=== PATIENT | female | born 1995 | race Hispanic/Latino ===

== ENCOUNTER 2018-01-06 17:47 | Emergency (ER) | payer OTHER, SELFPAY ==
--- NOTE | 2018-01-06 18:33 | ER ---
Nurse's Notes [facility] Name: Arabella Crisostomo Age: 22 yrs Sex: Female : 1995 Arrival Date: 01/06/2018 Time: 17:50 Bed Waiting Private MD: None, None Diagnosis: ED Course: 01/06 17:50 Patient arrived in ED. mr 17:51 None, None is Private Physician. mr 18:05 Patient's name was called from ER [facility]. No response. Unable to locate patient. Will ss disposition as left without being seen by a provider. Administered Medications: No medications were administered Outcome: 18:32 Eloped from waiting room. ss 18:33 Patient left the ED. ss Signatures: Emily De Shelby, RN RN ss
== END 2018-01-06 18:33 | disposition left against medical advice (07) ==
LOC: ER 17:47
DX: Z53.21 Procedure and treatment not carried out due to patient leaving prior to being seen by health care provider (principal)

== ENCOUNTER 2022-08-23 09:54 | Emergency (ER) | payer OTHER ==
--- OUTSIDE RECORDS SUMMARY | 2022-08-23 10:02 | XMS REPORT | Continuity of Care Document ---
:1995 Author Organization [facility] t Address [address] [place] [address] [address] [place] [address] Care Team Providers Name Role Phone Provider, [facility] Attending Clinician Unavailable Gracie Quintana Attending Clinician GRACIE LEYVA Attending Clinician Unavailable Doctor Unassigned, [facility] Attending Clinician Unavailable Jesus Carbajal Attending Clinician JESUS KILGORE Attending Clinician Unavailable Visit, CarmeloRmchamol Nurse Attending Clinician Unavailable DEANGELO WEEKS Attending Clinician Unavailable Addison Carter MD Attending Clinician Ultrasound, Matthew Attending Clinician Unavailable Radha Ortiz MD Attending Clinician Denisse Carrasquillo MD Attending Clinician AkinMelissa Smith Attending Clinician [phone] ADDISON CARTER Admitting Clinician Unavailable DEANGELO WEEKS Admitting Clinician Unavailable Addison Carter MD Admitting Clinician Payers Payer Name Policy Type Policy Number Effective Date Expiration Date [facility] [id number] 2019 [facility] MEDICAID 00:00:00 MEDICAID PENDING PENDING 2019 00:00:00 [place] [id number] 2019 00:00:00 Problems Condition Condition Condition Status Onset Resolution Last Treating Co mments Source Name Details Category Date Date Treatment Clinician Date Encounter Encounter Disease Active Uni vers for for 10-02 ity of surveillan [place]an [place] ce of 00 Medical contracept contracept Br anch tashi, tashi, unspecifie unspecifie d d contracept contracept kaasndra kasandra Tubal Tubal Disease Active Univers ligation ligation 3-08 ity of status status 00:00: [place] [facility] 39 weeks 39 weeks Disease Active Unive rs gestation gestation 1-24 ity of of of 00:00: [place] 00 [facility] Branch Leakage of Leakage of Disease Active U nivers amniotic amniotic 1-24 ity of fluid fluid 00:00: [place] [facility] Branch 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 Address at 36wks Overweight Overweight Disease Active U nivers 5-27 ity of 00:00: [place] [facility] Multiparit Multiparit Disease Active U nivers y y 5-27 ity of 00:00: [place] [facility] BMI BMI Disease Active Univers 27.0-27.9, 27.0-27.9, 5-27 it y of adult adult 00:00: [place] [facility] Branch BMI BMI Disease Active 2016-07 Univers 29.0-29.9, 29.0-29.9, 2-13 it y of adult adult 00:00: [address] Branch Screening Screening Disease Active 2016-07 Uni vers examinatio examinatio 2-13 it y of n for STD n for STD 00:00: [place] (sexually (sexually 00 [facility] transmitte transmitte Br anch d disease) d disease) Need for Need for Disease Active 2016-07 Unive rs HPV HPV 2-13 ity of vaccinatio vaccinatio [place] 00 [facility] Branch Class 1 Class 1 Disease Active 2016-07 Univers obesity obesity 2-13 ity of with body with body 00:00: [place] mass index mass index 00 Me dical (BMI) of (BMI) of Branch 33.0 to 33.0 to 33.9 in 33.9 in adult, adult, unspecifie unspecifie d obesity d obesity type, type, unspecifie unspecifie d whether d whether serious serious comorbidit comorbidit y present y present BMI BMI Disease Active 2017-1 Univers 29.0-29.9, 29.0-29.9, 2-13 it y of adult adult 00:00: [place] 00 [facility] Previous Previous Disease Active 2016-07 Unive rs 1- ity of delivery delivery 00:00: [place] affecting affecting 00 Medi iraj , , Br anch antepartum antepartum BMI BMI Disease Active 2016-07 Univers 33.0-33.9, 33.0-33.9, 0-31 it y of adult adult 00:00: [place] 00 Medical [facility] Obesity in Obesity in Disease Active 2016-07 U nivers 0-04 ity of 00:00: [place] 00 Medical Branch Supervisio Supervisio Disease Active U nivers n of high n of high 3-20 ity of risk risk 00:00: [place] , , 00 Me dical antepartum antepartum Br anch Maternal Maternal Disease Active Overview: Un jaz varicella, varicella, 3-03 Formattin ity of non-immune non-immune 00:00: g of this 00 note Medical might be Branch different from the original. Negative, address in PP Allergies, Adverse Reactions, Alerts Allergy Allergy Status Severity Reaction(s) Onset Inactive Treating Comm ents Source Name Type Date Date Clinician Tramadol Propensi Active Nausea Univer s ty to and/or 1-21 ity of adverse Vomiting 00:00: [place] reaction 00 Medical s to Branch drug TRAMADOL DRUG Active Med N/V Univers INGREDI 1-21 ity of 00:00: [place] 00 Medical Branch Codeine Propensi Active Rash Univers ty to 7-11 ity of adverse 00:00: [place] reaction 00 Medical s Branch CODEINE DRUG Active N/V Univers INGREDI 7-11 ity of 00:00: [place] 00 Medical Branch NO KNOWN Drug Active Univers ALLERGIE Class ity of S [facility] Social History Social Habit Start Date Stop Date Quantity Comments Source ASSERTION 2019-12-05 University of 00:00:00 [facility] Exposure to Not sure University of SARS-CoV-2 [place] [facility] (event) Branch Tobacco use and 2021-02-06 2021-02-06 Never used Universit y of exposure 00:00:00 00:00:00 [facility] Alcohol intake 2021-02-06 2021-02-06 Current University of 00:00:00 00:00:00 non-drinker of [facility] alcohol Branch (finding) Tobacco Comment 2016-09-26 2016-09-26 stopped smoking Univ ersity of 00:00:00 00:00:00 Saturday 09/23 [place] [facility] History of 2016-09-23 Smoker University of tobacco use 00:00:00 [facility] Sex Assigned At [birth year] Universit y of 00:00:00 00:00:00 [facility] Smoking Status Start Date Stop Date Source Former smoker 2021-02-06 00:00:00 2021-02-06 00:00:00 Universi ty of [facility] Medications Ordered Filled Start Stop Current Ordering Indication Dosage Frequency Signature Comments Components Source Medication Medication Date Date Medication? Clinician (SIG) Name Name maria cazin 2020- No [id number] 5mL Take 5 mL Univers e-dextromet 02-06 by mouth ity of horphan 00:00: 04:59 every 4 [place] 6.25-15 00 :00 (four) Medical mg/5 mL hours as Branch syrup needed for Cough for up to 14 days. Yes [id number] 1{tbl} Take 1 Univers vitamin 1-25 tablet by ity of w/FA tablet 00:00: mouth [place] 00 daily. Medical Branch docusate Yes [id number] 240mg Take 1 U nivers calcium 240 1-25 capsule by it y of mg capsule 00:00: mouth once [place] 00 daily as Medical needed for Branch Constipati on. ferrous Yes [id number] 325mg Take 1 Un jaz sulfate 325 1-25 tablet by ity of mg (65 mg 00:00: mouth 2 [place] iron) 00 (two) Medical tablet times Branch daily. ibuprofen Yes [id number] 600mg Take 1 Univers 600 mg 1-25 tablet by ity of tablet 00:00: mouth [place] 00 every 6 Medical (six) Branch hours as needed (Pain). Take with food or milk. HYDROcodone Yes [id number] 1{tbl} Take 1 Un jaz -acetaminop 1-25 tablet by ity of hen 5-325 00:00: mouth [place] mg tablet 00 every 6 Medical (six) Branch hours as needed for Pain (scale 7-10) (Pain scale above 4). Do not exceed 3 grams of acetaminop hen in 24 hours. Indication s: acute pain simethicone Yes [id number] 80mg Take 1 Univers (GAS 1-25 tablet by ity of RELIEF, 00:00: mouth [place] SIMETHICONE 00 after Medical ,) 80 mg meals and Branch chewable at bedtime tablet as needed for Gas. Yes [id number] 1{tbl} Take 1 Univers vitamin 1-25 tablet by ity of w/FA tablet 00:00: mouth [place] 00 daily. Medical Branch docusate Yes [id number] 240mg Take 1 U nivers calcium 240 1-25 capsule by it y of mg capsule 00:00: mouth [place] 00 daily as Medical needed for Branch Constipati on. ferrous Yes [id number] 325mg Take 1 Un jaz sulfate 325 1-25 tablet by ity of mg (65 mg 00:00: mouth 2 [place] iron) 00 (two) Medical tablet times Branch daily. ibuprofen Yes [id number] 600mg Take 1 Univers 600 mg 1-25 tablet by ity of tablet 00:00: mouth [place] 00 every 6 Medical (six) Branch hours as needed (Pain). Take with food or milk. HYDROcodone Yes [id number] 1{tbl} Take 1 Un jaz -acetaminop 1-25 tablet by ity of hen 5-325 00:00: mouth [place] mg tablet 00 every 6 Medical (six) Branch hours as needed for Pain (scale 7-10) (Pain scale above 4). Do not exceed 3 grams of acetaminop hen in 24 hours. Indication s: acute pain simethicone Yes [id number] 80mg Take 1 Univers (GAS 1-25 tablet by ity of RELIEF, 00:00: mouth [place] SIMETHICONE 00 after Medical ,) 80 mg meals and Branch chewable at bedtime tablet as needed for Gas. 2020- No [id number] 1{tbl} Take 1 Univers vitamin 1-25 03-08 tablet by ity of w/FA tablet 00:00: 00:00 [place] 00 :00 daily. Medical Branch docusate No [id number] 240mg Take 1 Univers calcium 240 08-21 capsule by i ty of mg capsule 00:00: 00:00 mouth once [place] 00 :00 daily as Medical needed for Branch Constipati on. ferrous 2020- No [id number] 325mg Take 1 U nivers sulfate 325 08-21 tablet by it y of mg (65 mg 00:00: 00:00 mouth 2 [place] iron) 00 :00 (two) Medical tablet times Branch daily. ibuprofen 2020- No [id number] 600mg Take 1 Univers 600 mg 08-21 tablet by ity of tablet 00:00: 00:00 mouth [place] 00 :00 every 6 Medical (six) Branch hours as needed (Pain). Take with food or milk. HYDROcodone 2020- No [id number] 1{tbl} Take 1 U nivers -acetaminop 08-21 tablet by it y of hen 5-325 00:00: 00:00 mouth [place] mg tablet 00 :00 every 6 Medical (six) Branch hours as needed for Pain (scale 7-10) (Pain scale above 4). Do not exceed 3 grams of acetaminop hen in 24 hours. Indication s: acute pain simethicone 2020- No [id number] 80mg Take 1 Univers (GAS 08-21 tablet by ity of RELIEF, 00:00: 00:00 mouth [place] SIMETHICONE 00 :00 after Medical ,) 80 mg meals and Branch chewable at bedtime tablet as needed for Gas. SELECT-OB + Yes [id number] TAKE 1 Univers DHA 29 mg 1-19 PACKET ity of iron-1 mg 00:00: DAILY BY [place] -250 mg 00 MOUTH Medical combo pack Branch SELECT-OB + Yes [id number] TAKE 1 Univers DHA 29 mg 1-19 PACKET ity of iron-1 mg 00:00: DAILY [place] -250 mg 00 MOUTH Medical combo pack Branch valACYclovi Yes [id number] 500mg Take 1 Univers r (VALTREX) 1-07 tablet by ity of 500 mg 00:00: mouth [place] tablet 00 daily. Medical Branch valACYclovi Yes [id number] 500mg Take 1 Univers r (VALTREX) 1-07 tablet by ity of 500 mg 00:00: mouth [place] tablet 00 daily. Medical Branch valACYclovi Yes [id number] 500mg Take 1 Univers r (VALTREX) 1-07 tablet by ity of 500 mg 00:00: mouth [place] tablet 00 daily. Medical Branch valACYclovi Yes [id number] 500mg Take 1 Univers r (VALTREX) 1-07 tablet by ity of 500 mg 00:00: mouth [place] tablet 00 daily. Medical Branch valACYclovi Yes [id number] 500mg Take 1 Univers r (VALTREX) 1-07 tablet by ity of 500 mg 00:00: mouth [place] tablet 00 daily. Medical Branch valACYclovi Yes [id number] 500mg Take 1 Univers r (VALTREX) 1-07 tablet by ity of 500 mg 00:00: mouth [place] tablet 00 daily. Medical Branch Yes [id number] 1{packe Take 1 Univers vit 6-01 t} Packet by ity of 33-iron-fol 00:00: mouth [place] ic-dha 00 daily. Medical (SELECT-OB Branch + DHA) 29 mg iron-1 mg -250 mg combo pack Yes [id number] 1{packe Take 1 Univers vit 6-01 t} Packet by ity of 33-iron-fol 00:00: mouth [place] ic-dha 00 daily. Medical (SELECT-OB Branch + DHA) 29 mg iron-1 mg -250 mg combo pack Yes [id number] 1{packe Take 1 Univers vit 6-01 t} Packet by ity of 33-iron-fol 00:00: mouth [place] ic-dha 00 daily. Medical (SELECT-OB Branch + DHA) 29 mg iron-1 mg -250 mg combo pack 2019- Yes [id number] 1{packe Take 1 Univers vit 6-01 t} Packet by ity of 33-iron-fol 00:00: mouth [place] ic-dha 00 daily. Medical (SELECT-OB Branch + DHA) 29 mg iron-1 mg -250 mg combo pack Yes [id number] 1{packe Take 1 Univers vit 6-01 t} Packet by ity of 33-iron-fol 00:00: mouth [place] ic-dha 00 daily. Medical (SELECT-OB Branch + DHA) 29 mg iron-1 mg -250 mg combo pack 2020-0 Yes [id number] 1{packe Take 1 Univers vit 6-01 t} Packet by ity of 33-iron-fol 00:00: mouth [place] ic-dha 00 daily. Medical (SELECT-OB Branch + DHA) 29 mg iron-1 mg -250 mg combo pack 2020-0 Yes [id number] 1{packe Take 1 Univers vit 6-01 t} Packet by ity of 33-iron-fol 00:00: mouth [place] ic-dha 00 daily. Medical (SELECT-OB Branch + DHA) 29 mg iron-1 mg -250 mg combo pack 2020-0 Yes [id number] 1{packe Take 1 Univers vit 6-01 t} Packet by ity of 33-iron-fol 00:00: mouth [place] ic-dha 00 daily. Medical (SELECT-OB Branch + DHA) 29 mg iron-1 mg -250 mg combo pack 2020-0 Yes [id number] 1{packe Take 1 Univers vit 6-01 t} Packet by ity of 33-iron-fol 00:00: mouth [place] ic-dha 00 daily. Medical (SELECT-OB Branch + DHA) 29 mg iron-1 mg -250 mg combo pack 2020-0 Yes [id number] 1{packe Take 1 Univers vit 6-01 t} Packet by ity of 33-iron-fol 00:00: mouth [place] ic-dha 00 daily. Medical (SELECT-OB Branch + DHA) 29 mg iron-1 mg -250 mg combo pack 2020-0 Yes [id number] 1{packe Take 1 Univers vit 6-01 t} Packet by ity of 33-iron-fol 00:00: mouth [place] ic-dha 00 daily. Medical (SELECT-OB Branch + DHA) 29 mg iron-1 mg -250 mg combo pack 2020-0 Yes [id number] 1{packe Take 1 Univers vit 6-01 t} Packet by ity of 33-iron-fol 00:00: mouth [place] ic-dha 00 daily. Medical (SELECT-OB Branch + DHA) 29 mg iron-1 mg -250 mg combo pack 2020-0 Yes [id number] 1{packe Take 1 Univers vit 6-01 t} Packet by ity of 33-iron-fol 00:00: mouth [place] ic-dha 00 daily. Medical (SELECT-OB Branch + DHA) 29 mg iron-1 mg -250 mg combo pack 2020-0 Yes [id number] 1{packe Take 1 Univers vit 6-01 t} Packet by ity of 33-iron-fol 00:00: mouth [place] ic-dha 00 daily. Medical (SELECT-OB Branch + DHA) 29 mg iron-1 mg -250 mg combo pack 2020-0 Yes [id number] 1{packe Take 1 Univers vit 6-01 t} Packet by ity of 33-iron-fol 00:00: mouth [place] ic-dha 00 daily. Medical (SELECT-OB Branch + DHA) 29 mg iron-1 mg -250 mg combo pack 2020-0 Yes [id number] 1{packe Take 1 Univers vit 6-01 t} Packet by ity of 33-iron-fol 00:00: mouth [place] ic-dha 00 daily. Medical (SELECT-OB Branch + DHA) 29 mg iron-1 mg -250 mg combo pack 2020-0 Yes [id number] 1{packe Take 1 Univers vit 6-01 t} Packet by ity of 33-iron-fol 00:00: mouth [place] ic-dha 00 daily. Medical (SELECT-OB Branch + DHA) 29 mg iron-1 mg -250 mg combo pack 2020-0 Yes [id number] 1{packe Take 1 Univers vit 6-01 t} Packet by ity of 33-iron-fol 00:00: mouth [place] ic-dha 00 daily. Medical (SELECT-OB Branch + DHA) 29 mg iron-1 mg -250 mg combo pack 2020-0 Yes [id number] 1{packe Take 1 Univers vit 6-01 t} Packet by ity of 33-iron-fol 00:00: mouth [place] ic-dha 00 daily. Medical (SELECT-OB Branch + DHA) 29 mg iron-1 mg -250 mg combo pack 2020-0 Yes [id number] 1{packe Take 1 Univers vit 6-01 t} Packet by ity of 33-iron-fol 00:00: mouth [place] ic-dha 00 daily. Medical (SELECT-OB Branch + DHA) 29 mg iron-1 mg -250 mg combo pack 2020-0 Yes [id number] 1{packe Take 1 Univers vit 6-01 t} Packet by ity of 33-iron-fol 00:00: mouth [place] ic-dha 00 daily. Medical (SELECT-OB Branch + DHA) 29 mg iron-1 mg -250 mg combo pack 2020-0 Yes [id number] 1{packe Take 1 Univers vit 6-01 t} Packet by ity of 33-iron-fol 00:00: mouth [place] ic-dha 00 daily. Medical (SELECT-OB Branch + DHA) 29 mg iron-1 mg -250 mg combo pack 2020-0 Yes [id number] 1{packe Take 1 Univers vit 6-01 t} Packet by ity of 33-iron-fol 00:00: mouth [place] ic-dha 00 daily. Medical (SELECT-OB Branch + DHA) 29 mg iron-1 mg -250 mg combo pack Yes [id number] 1{packe Take 1 Univers vit 6-01 t} Packet by ity of 33-iron-fol 00:00: mouth [place] ic-dha 00 daily. Medical (SELECT-OB Branch + DHA) 29 mg iron-1 mg -250 mg combo pack 2019-0 Yes [id number] 1{packe Take 1 Univers vit 6-01 t} Packet by ity of 33-iron-fol 00:00: mouth [place] ic-dha 00 daily. Medical (SELECT-OB Branch + DHA) 29 mg iron-1 mg -250 mg combo pack 2019-0 Yes [id number] 1{packe Take 1 Univers vit 6-01 t} Packet by ity of 33-iron-fol 00:00: mouth [place] ic-dha 00 daily. Medical (SELECT-OB Branch + DHA) 29 mg iron-1 mg -250 mg combo pack 2020-0 Yes [id number] 1{packe Take 1 Univers vit 6-01 t} Packet by ity of 33-iron-fol 00:00: mouth [place] ic-dha 00 daily. Medical (SELECT-OB Branch + DHA) 29 mg iron-1 mg -250 mg combo pack 2020-0 Yes [id number] 1{packe Take 1 Univers vit 6-01 t} Packet by ity of 33-iron-fol 00:00: mouth [place] ic-dha 00 daily. Medical (SELECT-OB Branch + DHA) 29 mg iron-1 mg -250 mg combo pack 2020- No [id number] 1{packe Take 1 Univers vit -08-15 t} Packet by ity of 33-iron-fol 00:00: 00:00 [place] ic-dha 00 :00 daily. Medical (SELECT-OB Branch + DHA) 29 mg iron-1 mg -250 mg combo pack ibuprofen 2016-07 Yes 600mg Take 1 Unive rs 600 mg 07-28 tablet by ity of tablet 00:00: mouth [place] 00 every 6 Medical (six) Branch hours. ibuprofen 2016-07- No 600mg Take 1 Univ ers 600 mg 07-28 tablet by ity of tablet 00:00: 00:00 mouth [place] 00 :00 every 6 Medical (six) Branch hours. ibuprofen 2016-07- No 600mg Take 1 Univ ers 600 mg 07-28 tablet by ity of tablet 00:00: 00:00 mouth [place] 00 :00 every 6 Medical (six) Branch hours. ibuprofen 2016-07 No 600mg Take 1 Univ ers 600 mg 07-28 tablet by ity of tablet 00:00: 00:00 mouth [place] 00 :00 every 6 Medical (six) Branch hours. Yes [id number] 1{tbl} Take 1 U nivers multivitami 3-02 tablet by ity of n ( 00:00: mouth [place] VITAMIN) 00 daily. Medical tablet Branch 2019- No [id number] 1{tbl} Take 1 Univers multivitami 3-02 05-27 tablet by it y of n ( 00:00: 00:00 [place] VITAMIN) 00 :00 daily. Medical tablet Branch 2019- No [id number] 1{tbl} Take 1 Univers multivitami 3-02 05-27 tablet by it y of n ( 00:00: 00:00 [place] VITAMIN) 00 :00 daily. Medical tablet Branch 2019- No [id number] 1{tbl} Take 1 Univers multivitami 3-02 05-27 tablet by it y of n ( 00:00: 00:00 [place] VITAMIN) 00 :00 daily. Medical tablet Branch No known No [facility] Immun[facility] Ordered Filled Immunization Date Status Comments [facility] e Immunization Name Name Varicella 2020-08-21 Completed University of (varivax)(chicken 00:00:00 [place] M edical pox) Branch HPV9 2020-08-21 Completed University of 00:00:00 [facility] Varicella 2020-08-21 Completed University of (varivax)(chicken 00:00:00 [place] M edical pox) Branch HPV9 2020-08-21 Completed University of 00:00:00 [facility] Varicella 2020-08-21 Completed University of (varivax)(chicken 00:00:00 [place] M edical pox) Branch HPV9 2020-08-21 Completed University of 00:00:00 [facility] Varicella 2020-08-21 Completed University of (varivax)(chicken 00:00:00 [place] M edical pox) Branch HPV9 2020-08-21 Completed University of 00:00:00 [facility] TDAP 2020-06-05 Completed University of 00:00:00 [facility] TDAP 2020-06-05 Completed University of 00:00:00 [facility] TDAP 2020-06-05 Completed University of 00:00:00 [facility] TDAP 2020-06-05 Completed University of 00:00:00 [facility] TDAP 2020-06-05 Completed University of 00:00:00 [facility] TDAP 2020-06-05 Completed University of 00:00:00 [facility] TDAP 2020-06-05 Completed University of 00:00:00 [facility] TDAP 2020-06-05 Completed University of 00:00:00 [facility] TDAP 2020-06-05 Completed University of 00:00:00 [facility] TDAP 2020-06-05 Completed University of 00:00:00 [facility] TDAP 2020-06-05 Completed University of 00:00:00 [facility] TDAP 2020-06-05 Completed University of 00:00:00 [facility] TDAP 2020-06-05 Completed University of 00:00:00 [facility] TDAP 2020-06-05 Completed University of 00:00:00 [facility] TDAP 2020-06-05 Completed University of 00:00:00 [facility] TDAP 2020-06-05 Completed University of 00:00:00 [facility] TDAP 2020-06-05 Completed University of 00:00:00 [facility] TDAP 2020-06-05 Completed University of 00:00:00 [place] [facility] [place] Influenza Virus 2020-05-22 Completed Universit y of Vaccine Quad .5 mL 00:00:00 [place] [facility] IM 6+ MO Branch Influenza Virus 2020-05-22 Completed Universit y of Vaccine Quad .5 mL 00:00:00 [place] [facility] IM 6+ MO Branch Influenza Virus 2020-05-22 Completed Universit y of Vaccine Quad .5 mL 00:00:00 [place] [facility] IM 6+ MO Branch Influenza Virus 2020-05-22 Completed Universit y of Vaccine Quad .5 mL 00:00:00 [place] [facility] IM 6+ MO Branch Influenza Virus 2020-05-22 Completed Universit y of Vaccine Quad .5 mL 00:00:00 [place] [facility] IM 6+ MO Branch Influenza Virus 2020-05-22 Completed Universit y of Vaccine Quad .5 mL 00:00:00 [place] [facility] IM 6+ MO Branch Influenza Virus 2020-05-22 Completed Universit y of Vaccine Quad .5 mL 00:00:00 [place] [facility] IM 6+ MO Branch Influenza Virus 2020-05-22 Completed Universit y of Vaccine Quad .5 mL 00:00:00 [place] [facility] IM 6+ MO Branch Influenza Virus 2020-05-22 Completed Universit y of Vaccine Quad .5 mL 00:00:00 [place] [facility] IM 6+ MO Branch Influenza Virus 2020-05-22 Completed Universit y of Vaccine Quad .5 mL 00:00:00 [place] [facility] IM 6+ MO Branch Influenza Virus 2020-05-22 Completed Universit y of Vaccine Quad .5 mL 00:00:00 [place] [facility] IM 6+ MO Branch Influenza Virus 2020-05-22 Completed Universit y of Vaccine Quad .5 mL 00:00:00 [place] [facility] IM 6+ MO Branch Influenza Virus 2020-05-22 Completed Universit y of Vaccine Quad .5 mL 00:00:00 [place] [facility] IM 6+ MO Branch Influenza Virus 2020-05-22 Completed Universit y of Vaccine Quad .5 mL 00:00:00 [place] [facility] IM 6+ MO Branch Influenza Virus 2020-05-22 Completed Universit y of Vaccine Quad .5 mL 00:00:00 [place] [facility] IM 6+ MO Branch Influenza Virus 2020-05-22 Completed Universit y of Vaccine Quad .5 mL 00:00:00 [place] [facility] IM 6+ MO Branch Influenza Virus 2020-05-22 Completed Universit y of Vaccine Quad .5 mL 00:00:00 [place] [facility] IM 6+ MO Branch Influenza Virus 2020-05-22 Completed Universit y of Vaccine Quad .5 mL 00:00:00 [place] [facility] IM 6+ MO Branch Influenza Virus 2020-05-22 Completed Universit y of Vaccine Quad .5 mL 00:00:00 [place] [facility] IM 6+ MO Branch Influenza Virus 2020-05-22 Completed Universit y of Vaccine Quad .5 mL 00:00:00 [facility] IM 6+ MO Branch HPV9 2017-07-08 Completed University of 00:00:00 [facility] Branch HPV9 2017-07-08 Completed University of 00:00:00 [facility] Branch HPV9 2017-07-08 Completed University of 00:00:00 [facility] Branch HPV9 2017-07-08 Completed University of 00:00:00 [facility] Branch HPV9 2017-07-08 Completed University of 00:00:00 [facility] HPV9 2017-07-08 Completed University of 00:00:00 [facility] HPV9 2017-07-08 Completed University of 00:00:00 [facility] Branch HPV9 2017-07-08 Completed University of 00:00:00 [facility] Branch HPV9 2017-07-08 Completed University of 00:00:00 [facility] Branch HPV9 2017-07-08 Completed University of 00:00:00 [facility] Branch HPV9 2017-07-08 Completed University of 00:00:00 [facility] Branch HPV9 2017-07-08 Completed University of 00:00:00 [facility] Branch HPV9 2017-07-08 Completed University of 00:00:00 [facility] Branch HPV9 2017-07-08 Completed University of 00:00:00 [facility] Branch HPV9 2017-07-08 Completed University of 00:00:00 [facility] Branch HPV9 2017-07-08 Completed University of 00:00:00 [facility] Branch HPV9 2017-07-08 Completed University of 00:00:00 [facility] Branch HPV9 2017-07-08 Completed University of 00:00:00 [facility] Branch HPV9 2017-07-08 Completed University of 00:00:00 [facility] Branch HPV9 2017-07-08 Completed University of 00:00:00 [facility] HPV9 2017-07-08 Completed University of 00:00:00 [facility] Branch HPV9 2017-07-08 Completed [facility] 00:00:00 [facility] HPV9 2017-07-08 Completed [facility] 00:00:00 [facility] HPV9 2017-07-08 Completed [facility] 00:00:00 [facility] HPV9 2017-07-08 Completed [facility] 00[facility]00:00 [facility] HPV9 2017-07-08 Completed [facility] 00:00:00 [facility] HPV9 2017-07-08 Completed [facility] 00:00:00 [facility] HPV9 2017-07-08 Completed [facility] 00:00:00 [facility] HPV9 2017-07-08 Completed [facility] 00:00:00 [facility] HPV9 2017-07-08 Completed [facility] 00:00:00 [facility] HPV9 2017-07-08 Completed [facility] 00:00:00 [facility] HPV9 2017-07-08 Completed [facility] 00:00:00 [facility] HPV9 2017-07-08 Completed [facility] 00:00:00 [facility] HPV9 2017-07-08 Completed [facility] 00:00:00 [facility] HPV9 2017-07-08 Completed [facility] 00:00:00 [facility] HPV9 2017-07-08 Completed [facility] 00:00:00 [facility] HPV9 2017-07-08 Completed [facility] 00:00:00 [facility] HPV9 2017-07-08 Completed [facility] 00:00:00 [facility] HPV9 2017-07-08 Completed [facility] 00:00:00 [facility] HPV9 2017-07-08 Completed [facility] 00:00:00 [facility] HPV9 2017-05-28 Completed [facility] 00:00:00 [facility] HPV9 2017-05-28 Completed [facility] 00:00:00 [facility] HPV9 2017-05-28 Completed [facility] 00:00:00 [facility] HPV9 2017-05-28 Completed [facility] 00:00:00 [facility] HPV9 2017-05-28 Completed [facility] 00:00:00 [facility] HPV9 2017-05-28 Completed [facility] 00:00:00 [facility] HPV9 2017-05-28 Completed [facility] 00:00:00 [facility] HPV9 2017-05-28 Completed [facility] 00:00:00 [facility] HPV9 2017-05-28 Completed [facility] 00:00:00 [facility] HPV9 2017-05-28 Completed [facility] 00:00:00 [facility] HPV9 2017-05-28 Completed [facility] 00:00:00 [facility] HPV9 2017-05-28 Completed [facility] 00:00:00 [facility] HPV9 2017-05-28 Completed [facility] 00:00:00 [facility] HPV9 2017-05-28 Completed [facility] 00:00:00 [facility] HPV9 2017-05-28 Completed [facility] 00:00:00 [facility] HPV9 2017-05-28 Completed [facility] 00:00:00 [facility] HPV9 2017-05-28 Completed [facility] 00:00:00 [facility] HPV9 2017-05-28 Completed [facility] 00:00:00 [facility] HPV9 2017-05-28 Completed [facility] 00:00:00 [facility] HPV9 2017-05-28 Completed [facility] 00:00:00 [facility] HPV9 2017-05-28 Completed [facility] 00:00:00 [facility] HPV9 2017-05-28 Completed [facility] 00:00:00 [facility] HPV9 2017-05-28 Completed [facility] 00:00:00 [facility] HPV9 2017-05-28 Completed [facility] 00:00:00 [facility] HPV9 2017-05-28 Completed [facility] 00:00:00 [facility] HPV9 2017-05-28 Completed [facility] 00:00:00 [facility] HPV9 2017-05-28 Completed [facility] 00:00:00 [facility] HPV9 2017-05-28 Completed [facility] 00:00:00 [facility] HPV9 2017-05-28 Completed [facility] 00:00:00 [facility] HPV9 2017-05-28 Completed [facility] 00:00:00 [facility] HPV9 2017-05-28 Completed [facility] 00:00:00 [facility] HPV9 2017-05-28 Completed [facility] 00:00:00 [facility] HPV9 2017-05-28 Completed [facility] 00:00:00 [facility] HPV9 2017-05-28 Completed [facility] 00:00:00 [facility] HPV9 2017-05-28 Completed [facility] 00:00:00 [facility] HPV9 2017-05-28 Completed [facility] 00:00:00 [facility] HPV9 2017-05-28 Completed [facility] 00:00:00 [facility] HPV9 2017-05-28 Completed [facility] 00:00:00 [facility] HPV9 2017-05-28 Completed [facility] 00:00:00 [facility] HPV9 2017-05-28 Completed [facility] 00:00:00 [facility] Tdap 2017-03-03 Completed [facility] 00:00:00 [facility] Tdap 2017-03-03 Completed [facility] 00:00:00 [facility] TDAP 2017-03-03 Completed [facility] 00:00:00 [facility] TDAP 2017-03-03 Completed [facility] 00:00:00 [facility] TDAP 2017-03-03 Completed [facility] 00:00:00 [facility] TDAP 2017-03-03 Completed [facility] 00:00:00 [facility] TDAP 2017-03-03 Completed [facility] 00:00:00 [facility] TDAP 2017-03-03 Completed [facility] 00:00:00 [facility] TDAP 2017-03-03 Completed [facility] 00:00:00 [facility] TDAP 2017-03-03 Completed [facility] 00:00:00 [facility] TDAP 2017-03-03 Completed [facility] 00:00:00 [facility] TDAP 2017-03-03 Completed [facility] 00:00:00 [facility] TDAP 2017-03-03 Completed [facility] 00:00:00 [facility] TDAP 2017-03-03 Completed [facility] 00:00:00 [facility] TDAP 2017-03-03 Completed [facility] 00:00:00 [facility] TDAP 2017-03-03 Completed [facility] 00:00:00 [facility] TDAP 2017-03-03 Completed [facility] 00:00:00 [facility] TDAP 2017-03-03 Completed [facility] 00:00:00 [facility] TDAP 2017-03-03 Completed [facility] 00:00:00 [facility] Tdap 2017-03-03 Completed [facility] 00:00:00 [facility] TDAP 2017-03-03 Completed [facility] 00:00:00 [facility] TDAP 2017-03-03 Completed [facility] 00:00:00 [facility] TDAP 2017-03-03 Completed [facility] 00:00:00 [facility] TDAP 2017-03-03 Completed [facility] 00:00:00 [facility] TDAP 2017-03-03 Completed [facility] 00:00:00 [facility] TDAP 2017-03-03 Completed [facility] 00:00:00 [facility] TDAP 2017-03-03 Completed [facility] 00[facility]00:00 [facility] TDAP 2017-03-03 Completed [facility] 00[facility]00:00 [facility] TDAP 2017-03-03 Completed [facility] 00[facility]00:00 [facility] TDAP 2017-03-03 Completed [facility] 00:00:00 [facility] TDAP 2017-03-03 Completed [facility] 00:00:00 [facility] Tdap 2017-03-03 Completed [facility] 00:00:00 [facility] TDAP 2017-03-03 Completed [facility] 00[facility]00:00 [facility] TDAP 2017-03-03 Completed [facility] 00:00:00 [facility] TDAP 2017-03-03 Completed [facility] 00:00:00 [facility] TDAP 2017-03-03 Completed [facility] 00:00:00 [facility] TDAP 2017-03-03 Completed [facility] 00:00:00 [facility] Tdap 2017-03-03 Completed [facility] 00:00:00 [facility] Tdap 2017-03-03 Completed [facility] 00:00:00 [facility] Tdap 2017-03-03 Completed [facility] 00:00:00 [facility] Influenza Virus 2016-09-26 Completed [facility]+ 00:00:00 [facility] Influenza Virus 2016-09-26 Completed [facility]+ 00:00:00 [facility] Influenza Virus 2016-09-26 Completed [facility]+ 00:00:00 [facility] Influenza Virus 2016-09-26 Completed [facility] 3+ 00:00:00 [facility] Influenza Virus 2016-09-26 Completed [facility] 3+ 00:00:00 [facility] Influenza Virus 2016-09-26 Completed [facility] 3+ 00:00:00 [facility] Influenza Virus 2016-09-26 Completed [facility]+ 00:00:00 [facility] Influenza Virus 2016-09-26 Completed [facility]+ 00:00:00 [facility] Influenza Virus 2016-09-26 Completed [facility]+ 00:00:00 [facility] Influenza Virus 2016-09-26 Completed [facility]+ 00:00:00 [facility] Influenza Virus 2016-09-26 Completed [facility]+ 00:00:00 [facility] Influenza Virus 2016-09-26 Completed [facility] 3+ 00:00:00 [facility] Influenza Virus 2016-09-26 Completed [facility] 3+ 00:00:00 [facility] Influenza Virus 2016-09-26 Completed [facility]+ 00:00:00 [facility] Influenza Virus 2016-09-26 Completed [facility]+ 00:00:00 [facility] Influenza Virus 2016-09-26 Completed [facility]+ 00:00:00 [facility] Influenza Virus 2016-09-26 Completed [facility]+ 00:00:00 [facility] Influenza Virus 2016-09-26 Completed [facility]+ 00:00:00 [facility] Influenza Virus 2016-09-26 Completed [facility]+ 00:00:00 [facility] Influenza Virus 2016-09-26 Completed [facility]+ 00:00:00 [facility] Influenza Virus 2016-09-26 Completed [facility]+ 00:00:00 [facility] Influenza Virus 2016-09-26 Completed [facility]+ 00:00:00 [facility] Influenza Virus 2016-09-26 Completed [facility]+ 00:00:00 [facility] Influenza Virus 2016-09-26 Completed [facility]+ 00:00:00 [facility] Influenza Virus 2016-09-26 Completed [facility]+ 00:00:00 [facility] Influenza Virus 2016-09-26 Completed [facility]+ 00:00:00 [facility] Influenza Virus 2016-09-26 Completed [facility]+ 00:00:00 [facility] Influenza Virus 2016-09-26 Completed [facility]+ 00:00:00 [facility] Influenza Virus 2016-09-26 Completed [facility]+ 00:00:00 [facility] Influenza Virus 2016-09-26 Completed [facility]+ 00:00:00 [facility] Influenza Virus 2016-09-26 Completed [facility] 3+ 00:00:00 [facility] Influenza Virus 2016-09-26 Completed [facility] 3+ 00:00:00 [facility] Influenza Virus 2016-09-26 Completed [facility]+ 00:00:00 [facility] Influenza Virus 2016-09-26 Completed [facility]+ 00:00:00 [facility] Influenza Virus 2016-09-26 Completed [facility]+ 00:00:00 [facility] Influenza Virus 2016-09-26 Completed [facility] 3+ 00:00:00 [facility] Influenza Virus 2016-09-26 Completed [facility] 3+ 00:00:00 [facility] Influenza Virus 2016-09-26 Completed [facility] 3+ 00:00:00 [facility] Influenza Virus 2016-09-26 Completed [facility]+ 00:00:00 [facility] Influenza Virus 2016-09-26 Completed [facility]+ 00:00:00 [facility] Tdap 2012-03-19 Completed [facility] 00:00:00 [facility] Tdap 2012-03-19 Completed [facility] 00[facility]00:00 [facility] TDAP 2012-03-19 Completed [facility] 00:00:00 [facility] TDAP 2012-03-19 Completed [facility] 00[facility]00:00 [facility] TDAP 2012-03-19 Completed [facility] 00[facility]00:00 [facility] TDAP 2012-03-19 Completed [facility] 00[facility]00:00 [facility] TDAP 2012-03-19 Completed [facility] 00:00:00 [facility] TDAP 2012-03-19 Completed [facility] 00[facility]00:00 [facility] TDAP 2012-03-19 Completed [facility] 00:00:00 [facility] TDAP 2012-03-19 Completed [facility] 00:00:00 [facility] TDAP 2012-03-19 Completed [facility] 00:00:00 [facility] TDAP 2012-03-19 Completed [facility] 00:00:00 [facility] TDAP 2012-03-19 Completed [facility] 00:00:00 [facility] TDAP 2012-03-19 Completed [facility] 00:00:00 [facility] TDAP 2012-03-19 Completed [facility] 00:00:00 [facility] TDAP 2012-03-19 Completed [facility] 00:00:00 [facility] TDAP 2012-03-19 Completed [facility] 00:00:00 [facility] TDAP 2012-03-19 Completed [facility] 00:00:00 [facility] Tdap 2012-03-19 Completed [facility] 00:00:00 [facility] TDAP 2012-03-19 Completed [facility] 00:00:00 [facility] TDAP 2012-03-19 Completed [facility] 00:00:00 [facility] TDAP 2012-03-19 Completed [facility] 00:00:00 [facility] TDAP 2012-03-19 Completed [facility] 00:00:00 [facility] TDAP 2012-03-19 Completed [facility] 00:00:00 [facility] TDAP 2012-03-19 Completed [facility] 00:00:00 [facility] TDAP 2012-03-19 Completed [facility] 00:00:00 [facility] TDAP 2012-03-19 Completed [facility] 00:00:00 [facility] TDAP 2012-03-19 Completed [facility] 00:00:00 [facility] TDAP 2012-03-19 Completed [facility] 00:00:00 [facility] TDAP 2012-03-19 Completed [facility] 00:00:00 [facility] TDAP 2012-03-19 Completed [facility] 00:00:00 [facility] Tdap 2012-03-19 Completed [facility] 00:00:00 [facility] TDAP 2012-03-19 Completed [facility] 00:00:00 [facility] TDAP 2012-03-19 Completed [facility] 00:00:00 [facility] TDAP 2012-03-19 Completed [facility] 00:00:00 [facility] TDAP 2012-03-19 Completed [facility] 00:00:00 [facility] TDAP 2012-03-19 Completed [facility] 00:00:00 [facility] Tdap 2012-03-19 Completed [facility] 00:00:00 [facility] Tdap 2012-03-19 Completed [facility] 00:00:00 [facility] Tdap 2012-03-19 Completed [facility] 00:00:00 [facility] Vital Signs Vital Name Observation Time Observation Value Comments Source Systolic blood 2021-02-06 22:53:00 114 mm[Hg] Univer sity of pressure [facility] Diastolic blood 2021-02-06 22:53:00 73 mm[Hg] Unive rsity of pressure [facility] Heart rate 2021-02-06 22:53:00 88 /min Universi ty of [facility] Body temperature 2021-02-06 22:53:00 37.39 Katlyn [facility] ersity of [facility] Respiratory rate 2021-02-06 22:53:00 17 /min Univ ersity of [facility] Body height 2021-02-06 22:53:00 162.6 cm [facility] Body weight 2021-02-06 22:53:00 85.73 kg [facility] BMI 2021-02-06 22:53:00 32.44 kg/m2 [facility] ty of [facility] Oxygen saturation in 2021-02-06 22:53:00 98 /min [facility] Arterial blood by [facility] Pulse oximetry Branch Systolic blood 2020-10-02 14:54:00 110 mm[Hg] Univer sity of pressure [facility] Diastolic blood 2020-10-02 14:54:00 76 mm[Hg] Unive rsity of pressure [facility] Heart rate 2020-10-02 14:54:00 64 /min [facility]i ty of [facility] Body temperature 2020-10-02 14:54:00 36.56 Katlyn Univ ersity of [facility] Respiratory rate 2020-10-02 14:54:00 16 /min Univ ersity of [facility] Body height 2020-10-02 14:54:00 162.6 cm [facility]i ty of [facility] Body weight 2020-10-02 14:54:00 88.622 kg [facility] BMI 2020-10-02 14:54:00 33.54 kg/m2 Universi ty of [facility] Systolic blood 2020-08-28 22:08:00 112 mm[Hg] Univer sity of pressure [facility] Diastolic blood 2020-08-28 22:08:00 72 mm[Hg] Unive rsity of pressure [facility] Heart rate 2020-08-28 22:08:00 80 /min [facility]i ty of [facility] Body temperature 2020-08-28 22:08:00 36.83 Katlyn Univ ersity of [facility] Respiratory rate 2020-08-28 22:08:00 18 /min Univ ersity of [facility] Body height 2020-08-28 22:08:00 162.6 cm [facility] Systolic blood 2020-08-17 16:41:00 127 mm[Hg] Univer sity of pressure [facility] Diastolic blood 2020-08-17 16:41:00 83 mm[Hg] Unive rsity of pressure [facility] Heart rate 2020-08-17 16:41:00 102 /min [facility] Body temperature 2020-08-17 16:41:00 36.33 Katlyn Univ ersity of [facility] Respiratory rate 2020-08-17 16:41:00 16 /min Univ ersity of [facility] Body height 2020-08-17 16:41:00 162.6 cm [facility] ty of [facility] Body weight 2020-08-17 16:41:00 93.611 kg [facility] BMI 2020-08-17 16:41:00 35.42 kg/m2 [facility] Systolic blood 2020-08-10 15:27:00 120 mm[Hg] Univer sity of pressure [facility] Diastolic blood 2020-08-10 15:27:00 78 mm[Hg] Unive rsity of pressure [facility] Heart rate 2020-08-10 15:27:00 86 /min [facility] Body temperature 2020-08-10 15:27:00 36.94 Katlyn Univ ersity of [facility] Respiratory rate 2020-08-10 15:27:00 16 /min Univ ersity of [facility] Body height 2020-08-10 15:27:00 162.6 cm [facility] Body weight 2020-08-10 15:27:00 92.216 kg [facility] BMI 2020-08-10 15:27:00 34.90 kg/m2 [facility] Systolic blood 2020-08-03 15:46:00 119 mm[Hg] Univer sity of pressure [facility] Diastolic blood 2020-08-03 15:46:00 83 mm[Hg] Unive rsity of pressure [facility] Heart rate 2020-08-03 15:46:00 105 /min [facility] Body temperature 2020-08-03 15:46:00 36.94 Katlyn Univ ersity of [facility] Respiratory rate 2020-08-03 15:46:00 16 /min Univ ersity of [facility] Body height 2020-08-03 15:46:00 162.6 cm [facility] Body weight 2020-08-03 15:46:00 91.354 kg [facility] BMI 2020-08-03 15:46:00 34.57 kg/m2 [facility] Systolic blood 2020-07-18 16:00:00 114 mm[Hg] Univer sity of pressure [facility] Diastolic blood 2020-07-18 16:00:00 78 mm[Hg] Unive rsity of pressure [facility] Heart rate 2020-07-18 16:00:00 86 /min [facility] Body temperature 2020-07-18 16:00:00 37 Katlyn Univ ersity of [facility] Respiratory rate 2020-07-18 16:00:00 16 /min Univ ersity of [facility] Body height 2020-07-18 16:00:00 162.6 cm [facility] Body weight 2020-07-18 16:00:00 88.769 kg [facility] BMI 2020-07-18 16:00:00 33.59 kg/m2 [facility] Systolic blood 2020-07-03 21:33:00 116 mm[Hg] Univer sity of pressure [facility] Diastolic blood 2020-07-03 21:33:00 69 mm[Hg] Unive rsity of pressure [facility] Heart rate 2020-07-03 21:33:00 90 /min [facility] Body temperature 2020-07-03 21:33:00 36.94 Katlyn Univ ersity of [facility] Respiratory rate 2020-07-03 21:33:00 16 /min Univ ersity of [facility] Body height 2020-07-03 21:33:00 162.6 cm [facility] Body weight 2020-07-03 21:33:00 86.818 kg [facility] BMI 2020-07-03 21:33:00 32.85 kg/m2 [facility] Systolic blood 2020-06-19 19:53:00 118 mm[Hg] Univer sity of pressure [facility] Diastolic blood 2020-06-19 19:53:00 74 mm[Hg] Unive rsity of pressure [facility] Heart rate 2020-06-19 19:53:00 96 /min [facility] Body temperature 2020-06-19 19:53:00 36.89 Katlyn Univ ersity of [facility] Respiratory rate 2020-06-19 19:53:00 16 /min Univ ersity of [facility] Body height 2020-06-19 19:53:00 162.6 cm [facility] Body weight 2020-06-19 19:53:00 86.274 kg [facility] BMI 2020-06-19 19:53:00 32.65 kg/m2 [facility] Systolic blood 2020-06-05 19:56:00 122 mm[Hg] Univer sity of pressure [facility] Diastolic blood 2020-06-05 19:56:00 72 mm[Hg] Unive rsity of pressure [facility] Heart rate 2020-06-05 19:56:00 89 /min [facility] Body temperature 2020-06-05 19:56:00 36.39 Katlyn Univ ersity of [facility] Respiratory rate 2020-06-05 19:56:00 16 /min Univ ersity of [facility] Body height 2020-06-05 19:56:00 162.6 cm [facility] Body weight 2020-06-05 19:56:00 84.278 kg [facility] BMI 2020-06-05 19:56:00 31.89 kg/m2 [facility] Systolic blood 2020-05-22 15:47:00 111 mm[Hg] Univer sity of pressure [facility] Diastolic blood 2020-05-22 15:47:00 75 mm[Hg] Unive rsity of pressure [facility] Heart rate 2020-05-22 15:47:00 95 /min [facility] Body temperature 2020-05-22 15:47:00 36.5 Katlyn [facility]ity [facility] Respiratory rate 2020-05-22 15:47:00 16 /min Univ ersity of [facility] Body height 2020-05-22 15:47:00 162.6 cm [facility] Body weight 2020-05-22 15:47:00 82.872 kg [facility] BMI 2020-05-22 15:47:00 31.36 kg/m2 [facility] Systolic blood 2020-04-24 20:21:00 112 mm[Hg] Univer sity of pressure [facility] Diastolic blood 2020-04-24 20:21:00 69 mm[Hg] Unive rsity of pressure [facility] Heart rate 2020-04-24 20:21:00 91 /min [facility] Body temperature 2020-04-24 20:21:00 37.44 Katlyn [facility] Respiratory rate 2020-04-24 20:21:00 16 /min Univ ersity of [facility] Body height 2020-04-24 20:21:00 162.6 cm [facility] Body weight 2020-04-24 20:21:00 81.103 kg [facility] BMI 2020-04-24 20:21:00 30.69 kg/m2 [facility] Systolic blood 2020-04-13 16:15:00 111 mm[Hg] Univer sity of pressure [facility] Diastolic blood 2020-04-13 16:15:00 82 mm[Hg] Unive rsity of pressure [facility] Body temperature 2020-04-13 16:15:00 36.89 Katlyn [facility] Systolic blood 2020-03-27 19:47:00 115 mm[Hg] Univer sity of pressure [facility] Diastolic blood 2020-03-27 19:47:00 65 mm[Hg] Unive rsity of pressure [facility] Heart rate 2020-03-27 19:47:00 80 /min [facility] Body temperature 2020-03-27 19:47:00 36.78 Katlyn [facility] ersity [facility] Respiratory rate 2020-03-27 19:47:00 16 /min Univ ersity of [facility] Body height 2020-03-27 19:47:00 160 cm [facility] ty [facility] Body weight 2020-03-27 19:47:00 75.796 kg [facility] BMI 2020-03-27 19:47:00 29.60 kg/m2 [facility] Systolic blood 2020-02-28 19:29:00 108 mm[Hg] Univer sity of pressure [facility] Diastolic blood 2020-02-28 19:29:00 80 mm[Hg] [facility]ive [facility] Heart rate 2020-02-28 19:29:00 91 /min [facility] Body temperature 2020-02-28 19:29:00 36.39 Katlyn [facility] Respiratory rate 2020-02-28 19:29:00 16 /min [facility] Body weight 2020-02-28 19:29:00 74.135 kg [facility] BMI 2020-02-28 19:29:00 28.05 kg/m2 [facility] Systolic blood 2020-01-31 19:40:00 126 mm[Hg] [facility] Diastolic blood 2020-01-31 19:40:00 63 mm[Hg] [facility] Heart rate 2020-01-31 19:40:00 80 /min [facility] Body temperature 2020-01-31 19:40:00 37.11 Katlyn [facility] Respiratory rate 2020-01-31 19:40:00 16 /min [facility] Body height 2020-01-31 19:40:00 162.6 cm [facility] Body weight 2020-01-31 19:40:00 72.576 kg [facility] BMI 2020-01-31 19:40:00 27.46 kg/m2 [facility] Systolic blood 2019-12-22 19:14:00 113 mm[Hg] [facility] Diastolic blood 2019-12-22 19:14:00 71 mm[Hg] Unive rsity of pressure [facility] Heart rate 2019-12-22 19:14:00 78 /min [facility] Body temperature 2019-12-22 19:14:00 36.11 Katlyn [facility] Respiratory rate 2019-12-22 19:14:00 16 /min [facility] Body height 2019-12-22 19:14:00 162.6 cm [facility] Body weight 2019-12-22 19:14:00 72.831 kg [facility] BMI 2019-12-22 19:14:00 27.56 kg/m2 [facility] Procedures Procedure Date / Time Performing Clinician Source Performed ASSIGNMENT OF BENEFITS 2021-02-06 22:41:42 Doctor Unassigned, No [facility] HOSPITAL ADMISSION 2020-08-20 06:01:00 Doctor Unassigned, No [facility] 2020-08-17 16:46:00 Jesus Kilgore [facility] POCT URINALYSIS 2020-08-10 00:00:00 Jesus Kilgore [facility] POCT URINALYSIS 2020-08-03 00:00:00 Jesus Kilgore [facility] POCT URINALYSIS 2020-07-18 00:00:00 Jesus Kilgore [facility] POCT URINALYSIS 2020-07-03 00:00:00 Jesus Kilgore [facility] STERILIZATION CONSENT 2020-06-19 06:01:00 Doctor Unassigned, No [facility] POCT URINALYSIS 2020-06-19 00:00:00 Jesus Kilgore [facility] TDAP VACCINE, >11 YRS, 2020-06-05 19:46:41 [facility] FLU [facility]ACC ([id number]), 6+ 2020-05-22 15:59:58 Jesus Kilgore [facility] MONTHS, IM, [facility] Medical Branch POCT URINALYSIS 2020-05-22 00:00:00 Jesus Kilgore [facility] POCT URINALYSIS 2020-04-24 00:00:00 Jesus Kilgore [facility] US PELVIS > 14 2020-04-13 18:10:00 Addison Carter [facility] COVID-19 (ID NOW RAPID 2020-04-13 16:44:00 Addison Carter [facility] TESTING) [facility] ASSIGNMENT OF BENEFITS 2020-04-13 16:02:30 Doctor Unassigned, No [facility] POCT URINALYSIS 2020-03-27 00:00:00 Jesus Kilgore [facility] POCT URINALYSIS 2020-02-28 19:29:00 Jesus Kilgore [facility] POCT URINALYSIS 2020-01-31 19:41:00 Jesus Kilgore [facility] POCT TEST 2019-12-22 19:15:00 Jesus Kilgore [facility] POCT URINALYSIS W/O 2019-12-22 19:15:00 Jesus Kilgore [facility] SPECIFIC GRAVITY [facility] ASSIGNMENT OF BENEFITS 2019-12-22 18:54:03 Doctor Unassigned, No [facility] Encounters Start End Encounter Admission Attending Care Care Encounter Source Date/Time Date/Time Type Type Clinicians Facility Department ID 2021-05-25 Outpatient P [facility] LILI [id number] Univers 18:07:16 ity [facility] 2021-05-25 Outpatient P [facility] LILI [id number] [facility] 2021-02-06 2021-02-06 Urgent Provider, Marco [facility] 1.2.840.114 [id number] Univers 17:41:55 18:30:27 Jeannine Leyva [facility] 350.1.13.10 [facility] 4.2.7.2.686 Julius as Professio [phone] [place] dical [address] Office [address] 2021-02-06 2021-02-06 Outpatient R [facility] [id number] Univers 18:00:00 18:00:00 GRACIE schultz [facility] 2021-02-06 2021-02-06 Orders Doctor YEVGENIY 1.2.840.114 [id number] Univers 00:00:00 00:00:00 Only Unassigned, MEY 350.1.13.10 ity of [place] [facility] 4.2.7.2.686 Julius as [id number] [address] 2020-10-02 2020-10-02 [facility] 1.2.840.114 [id number] Univers 09:21:18 09:23:18 Jesus R SCRAP PREPARATION SUPERVISOR 350.1.13.10 ity of Visit REGIONAL 4.2.7.2.686 Julius as MATERNAL [id number] [facility] ical & CHILD [address] [place] [address] 2020-10-02 2020-10-02 [facility] [id number] Univers 08:45:00 08:45:00 JESUS gallardo [facility] 2020-09-13 2020-09-13 Outpatient Greg [facility] [id number] Univers 15:45:00 15:45:00 JESUS gallardo [facility] 2020-08-28 2020-08-28 Nurse Visit, [facility] Nurse [facility] 1.2 .840.114 [id number] Univers 15:33:57 16:04:20 Visit Jesus Kilgore SCRAP PREPARATION SUPERVISOR 350.1.13.10 ity of REGIONAL 4.2.7.2.686 Julius as MATERNAL [phone] [facility] CHILD [address] [place] [address] 2020-08-28 2020-08-28 [facility] [id number] Univers 15:30:00 15:30:00 JESUS gallardo [facility] 2020-08-20 2020-08-20 [facility] [id number] Univers 02:01:00 02:01:00 DEANGELO schultz [facility] 2020-08-20 2020-08-20 Orders Doctor VUONG 1.2.840.114 [id number] Univers 00:00:00 00:00:00 Only Unassigned, MEY 350.1.13.10 ity of [place] [facility] 4.2.7.2.686 Julius as [id number] [address] 2020-08-17 2020-08-17 [facility] 1.2.840.114 [id number] Univers 10:31:31 10:58:45 Roshunda R SCRAP PREPARATION SUPERVISOR 350.1.13.10 ity of Visit [facility] 4.2.7.2.686 Julius as MATERNAL [id number] [facility] CHILD [address] [place] [address] 2020-08-17 2020-08-17 Outpatient Greg [facility] [id number] Univers 10:45:00 10:45:00 ROSHUNDA ity o [facility] 2020-08-12 2020-08-12 [facility] 1.2.840.114 [id number] Univers 00:00:00 00:00:00 Roshunda R SCRAP PREPARATION SUPERVISOR 350.1.13.10 ity of [facility] 4.2.7.2.686 Julius as MATERNAL [id number] [address] 2020-08-10 2020-08-10 [facility] 1.2.840.114 [id number] Univers 09:20:26 10:08:43 Roshunda R SCRAP PREPARATION SUPERVISOR 350.1.13.10 ity of Visit [facility] 4.2.7.2.686 Julius as MATERNAL [phone] [facility] & CHILD [address] [place] [address] 2020-08-10 2020-08-10 [facility] [id number] Univers 09:15:00 09:15:00 ROSHUNDA ity o [facility] 2020-08-03 2020-08-03 [facility] 1.2.840.114 [id number] Univers 09:31:23 10:13:27 Roshunda R SCRAP PREPARATION SUPERVISOR 350.1.13.10 ity of Visit [facility] 4.2.7.2.686 Julius as MATERNAL [phone] Med ical & CHILD [address] [place] [address] 2020-08-03 2020-08-03 Outpatient Greg [facility] [id number] Univers 09:45:00 09:45:00 ROSHUNDA ity o f [facility] 2020-08-01 2020-08-01 Outpatient Greg [facility] [id number] Univers 07:45:00 07:45:00 ROSHUNDA ity o f [facility] 2020-07-18 2020-07-18 [facility] 1.2.840.114 [id number] Univers 09:50:35 10:12:24 Roshunda R SCRAP PREPARATION SUPERVISOR 350.1.13.10 ity of Visit REGIONAL 4.2.7.2.686 Julius as MATERNAL [id number] [facility] ical & CHILD [address] [place] [address] 2020-07-18 2020-07-18 Outpatient Greg [facility] [id number] Univers 09:45:00 09:45:00 ROSHUNDA ity o [facility] 2020-07-03 2020-07-03 [facility] 1.2.840.114 [id number] Univers 15:25:04 15:40:04 Roshunda R SCRAP PREPARATION SUPERVISOR 350.1.13.10 ity of Visit [facility] 4.2.7.2.686 Julius as MATERNAL [id number] [facility] ical & CHILD [address] [place] [address] 2020-07-03 2020-07-03 Outpatient [facility] [id number] Univers 15:30:00 15:30:00 ROSHUNDA ity o [facility] 2020-07-03 2020-07-03 Outpatient [facility] [id number] Univers 15:30:00 15:30:00 ROSHUNDA ity o [facility] 2020-06-19 2020-06-19 [facility] 1.2.840.114 [id number] Univers 13:40:06 13:55:06 Roshunda R SCRAP PREPARATION SUPERVISOR 350.1.13.10 ity of Visit REGIONAL 4.2.7.2.686 Julius as MATERNAL [id number] [facility] & CHILD [address] [place] [address] 2020-06-19 2020-06-19 [facility] [id number] Univers 13:45:00 13:45:00 ROSHUNDA ity o f [facility] 2020-06-19 2020-06-19 Orders Doctor YEVGENIY 1.2.840.114 [id number] Univers 00:00:00 00:00:00 Only Unassigned, MEY 350.1.13.10 ity of [place] [facility] 4.2.7.2.686 Julius as [id number] [address] 2020-06-05 2020-06-05 [facility] 1.2.840.114 [id number] Univers 13:45:19 14:14:35 Roshunda R SCRAP PREPARATION SUPERVISOR 350.1.13.10 ity of Visit [facility] 4.2.7.2.686 Julius as MATERNAL [id number] [facility] & CHILD [address] [place] [address] 2020-06-05 2020-06-05 [facility] [id number] Univers 13:45:00 13:45:00 ROSHUNDA ity o f [facility] 2020-05-22 2020-05-22 Routine [facility] 1.2.840.114 [id number] Univers 10:36:54 14:11:51 Roshunda R SCRAP PREPARATION SUPERVISOR 350.1.13.10 ity of Visit [facility] 4.2.7.2.686 Julius as MATERNAL [phone] [facility] & CHILD [address] [place] [address] 2020-05-22 2020-05-22 [facility] [id number] Univers 11:00:00 11:00:00 ROSHUNDA ity o f [facility] 2020-04-24 2020-04-24 Routine [facility] 1.2.840.114 [id number] Univers 14:34:07 15:30:23 Roshunda R SCRAP PREPARATION SUPERVISOR 350.1.13.10 ity of Visit REGIONAL 4.2.7.2.686 Julius as MATERNAL [phone] [facility] & CHILD [address] [place] [address] 2020-04-24 2020-04-24 Outpatient R [facility] [id number] Univers 14:30:00 14:30:00 ROSNARA ity o f [facility] 2020-04-13 2020-04-13 [facility] Addison Carter [facility] 1.2.840.114 [id number] Univers 11:05:00 14:05:00 Encounter [place] 350.1.13.10 ity of [place] 4.2.7.2.686 [facility] [id number] [facility] 083 [place] 2020-04-13 2020-04-13 Telephone Jame [facility] 1.2.232.089 [id number] Univers 00:00:00 00:00:00 Jesus Garza SCRAP PREPARATION SUPERVISOR 350.1.13.10 ity of [facility] 4.2.7.2.686 Julius as MATERNAL [phone] Med ical & CHILD [address] [place] [address] 2020-04-13 2020-04-13 Orders Doctor YEVGENIY 1.2.840.114 [id number] Univers 00:00:00 00:00:00 Only Unassigned, MEY 350.1.13.10 ity of [place] [facility] 4.2.7.2.686 Julius as [id number] [facility] 009 [place] 2020-04-11 2020-04-11 Abstract Jame [facility] 1.2.840.114 [id number] Univers 00:00:00 00:00:00 Jesus Garza SCRAP PREPARATION SUPERVISOR 350.1.13.10 ity of [facility] 4.2.7.2.686 Julius as MATERNAL [id number] Med ical & CHILD 107 [facility] 2020-04-10 2020-04-10 Double End Tenoner Operator Ultrasound, Marco A-Mfm [facility] 1.2 .840.114 [id number] Univers 13:51:58 14:51:58 Visit Radha Ortiz SCRAP PREPARATION SUPERVISOR 350.1.13.10 ity of [facility] 4.2.7.2.686 Julius as MATERNAL [phone] [facility] ical & CHILD 369 [facility] 2020-04-10 2020-04-10 Outpatient R [facility] [id number] Univers 14:00:00 14:00:00 ity of [facility] 2020-03-27 2020-03-27 Routine Jame [facility] 1.2.840.114 [id number] Univers 14:34:45 15:27:19 Roshunda R SCRAP PREPARATION SUPERVISOR 350.1.13.10 ity of Visit REGIONAL 4.2.7.2.686 Julius as MATERNAL [id number] [facility] & [address] 2020-03-27 2020-03-27 Outpatient Greg [facility] [id number] Univers 14:30:00 14:30:00 ROSHUNDA ity o f [facility] 2020-02-28 2020-02-28 [facility] 1.2.840.114 [id number] Univers 14:17:24 14:42:36 Roshunda R SCRAP PREPARATION SUPERVISOR 350.1.13.10 ity of Visit REGIONAL 4.2.7.2.686 Julius as MATERNAL [id number] [facility] & [address] 2020-02-28 2020-02-28 Outpatient Greg [facility] [id number] Univers 14:30:00 14:30:00 ROSAIMEENDA marion o [facility] 2020-01-31 2020-01-31 Routine [facility] 1.2.840.114 [id number] Univers 14:32:59 15:04:25 Roshunda R SCRAP PREPARATION SUPERVISOR 350.1.13.10 ity of Visit [facility] 4.2.7.2.686 Julius as MATERNAL [id number] [address] 2020-01-31 2020-01-31 Outpatient Greg [facility] [id number] Univers 14:30:00 14:30:00 ROSAIMEENDA itrich o f [facility] 2020-01-19 2020-01-19 Outpatient [facility] [id number] Univers 14:30:00 14:30:00 ROSHUNDA ity o f [facility] 2020-01-06 2020-01-06 Double End Tenoner Operator Ultrasound, Marco [facility] 1.2 .840.114 [id number] Univers 10:33:49 11:03:49 Visit Denisse Carrasquillo SCRAP PREPARATION SUPERVISOR 350.1.13.10 ity of [facility] 4.2.7.2.686 Julius as MATERNAL [id number] Med ical & CHILD 369 [facility] 2020-01-06 2020-01-06 Outpatient P [facility] [id number] Univers 10:00:00 10:00:00 ity of [facility] 2020-01-06 2020-01-06 Abstract [facility] 1.2.840.114 [id number] Univers 00:00:00 00:00:00 Melissa Jay SCRAP PREPARATION SUPERVISOR 350.1.13.10 ity of [facility] 4.2.7.2.686 Julius as MATERNAL [id number] Med ical & CHILD [address] [place] [address] 2019-12-28 2019-12-28 Patient Doctor [facility] 1.2.840.114 [id number] Univers 00:00:00 00:00:00 Secure Msg Unassigned, SCRAP PREPARATION SUPERVISOR 350.1.13.10 ity of [place] REGIONAL 4.2.7.2.686 Julius as MATERNAL [id number] Med ical & CHILD [address] [place] [address] 2019-12-28 2019-12-28 Patient Doctor [facility] 1.2.840.114 [id number] Univers 00:00:00 00:00:00 Secure Msg Unassigned, SCRAP PREPARATION SUPERVISOR 350.1.13.10 ity of [place] REGIONAL 4.2.7.2.686 Julius as MATERNAL [id number] Med ical & CHILD [address] [place] [address] 2019-12-23 2019-12-23 Telephone Jame [facility] 1.2.004.084 [id number] Univers 00:00:00 00:00:00 Rosaimeenda R SCRAP PREPARATION SUPERVISOR 350.1.13.10 ity of REG[facility] 4.2.7.2.686 Julius as MATERNAL [id number] Med ical & CHILD [address] [place] [address] 2019-12-22 2019-12-22 Initial Jame [facility] 1.2.840.114 [id number] Univers 13:53:54 15:48:42 Roshunda R SCRAP PREPARATION SUPERVISOR 350.1.13.10 ity of Visit REGIONAL 4.2.7.2.686 Julius as MATERNAL [id number] Med ical & CHILD [address] [place] [address] 2019-12-22 2019-12-22 Outpatient R JAME [facility] [id number] Univers 13:30:00 13:30:00 JESUS schultz o f [facility] 2019-12-22 2019-12-22 Orders Doctor YEVGENIY 1.2.840.114 [id number] Univers 00:00:00 00:00:00 Only Unassigned, MEY 350.1.13.10 ity of [place] [facility] 4.2.7.2.686 Julius as [id number] [address] Results Test Description Test Time Test Comments Results Result Comments Source POCT URINALYSIS W SPECIFIC GRAVITY 2020-08-17 16:46:00 Test Item Value Reference Range Interpretation Comme nts POCT U SP GRAV (test code = 3255) . 1.005-1.025 POCT PH U (test code = 3254) . 5-8 POCT U LEUK EST (test code = 3263) . Negative - Negative POCT U NIT (test code = 3262) . Negative - Negative POCT U PROT (test code = 3259) trace Negative - Negative POCT U GLU (test code = 3256) negative Negative - Negative POCT U KETONE (test code = 3258) . Negative - Negative POCT U UROBILI (test code = 3260) . 0.2-1 POCT U BILI (test code = 3261) . Negative - Negative POCT U BLD (test code = 3257) . Negative - Negative POCT U COLOR (test code = 3266) POCT U APPEAR (test code = 3267) [facility] W SPECIFIC [id number] 15:28:00 Test Item Value Reference Range Interpretation Comments POCT U SP GRAV (test code = 3255) . 1.005-1.025 POCT PH U (test code = 3254) . 5-8 POCT U LEUK EST (test code = 3263) . Negative - Negative POCT U NIT (test code = 3262) . Negative - Negative POCT U PROT (test code = 3259) trace Negative - Negative POCT U GLU (test code = 3256) neg Negative - Negative POCT U KETONE (test code = 3258) . Negative - Negative POCT U UROBILI (test code = 3260) . 0.2-1 POCT U BILI (test code = 3261) . Negative - Negative POCT U BLD (test code = 3257) . Negative - Negative POCT U COLOR (test code = 3266) POCT U APPEAR (test code = 3267) [facility] W SPECIFIC [id number] 15:47:00 Test Item Value Reference Range Interpretation Comments POCT U SP GRAV (test code = 3255) . 1.005-1.025 POCT PH U (test code = 3254) . 5-8 POCT U LEUK EST (test code = 3263) . Negative - Negative POCT U NIT (test code = 3262) . Negative - Negative POCT U PROT (test code = 3259) trace Negative - Negative POCT U GLU (test code = 3256) neg Negative - Negative POCT U KETONE (test code = 3258) . Negative - Negative POCT U UROBILI (test code = 3260) . 0.2-1 POCT U BILI (test code = 3261) . Negative - Negative POCT U BLD (test code = 3257) . Negative - Negative POCT U COLOR (test code = 3266) POCT U APPEAR (test code = 3267) [facility] URINALYSIS W SPECIFIC [id number] 15:47:00 Test Item Value Reference Range Interpretation Comments POCT U SP GRAV (test code = 3255) . 1.005-1.025 POCT PH U (test code = 3254) . 5-8 POCT U LEUK EST (test code = 3263) . Negative - Negative POCT U NIT (test code = 3262) . Negative - Negative POCT U PROT (test code = 3259) trace Negative - Negative POCT U GLU (test code = 3256) neg Negative - Negative POCT U KETONE (test code = 3258) . Negative - Negative POCT U UROBILI (test code = 3260) . 0.2-1 POCT U BILI (test code = 3261) . Negative - Negative POCT U BLD (test code = 3257) . Negative - Negative POCT U COLOR (test code = 3266) POCT U APPEAR (test code = 3267) [facility] URINALYSIS W SPECIFIC [id number] 15:47:00 Test Item Value Reference Range Interpretation Comments POCT U SP GRAV (test code = 3255) . 1.005-1.025 POCT PH U (test code = 3254) . 5-8 POCT U LEUK EST (test code = 3263) . Negative - Negative POCT U NIT (test code = 3262) . Negative - Negative POCT U PROT (test code = 3259) trace Negative - Negative POCT U GLU (test code = 3256) neg Negative - Negative POCT U KETONE (test code = 3258) . Negative - Negative POCT U UROBILI (test code = 3260) . 0.2-1 POCT U BILI (test code = 3261) . Negative - Negative POCT U BLD (test code = 3257) . Negative - Negative POCT U COLOR (test code = 3266) POCT U APPEAR (test code = 3267) [facility] URINALYSIS W SPECIFIC [id number] 16:01:00 Test Item Value Reference Range Interpretation Comments POCT U SP GRAV (test code = 3255) . 1.005-1.025 POCT PH U (test code = 3254) . 5-8 POCT U LEUK EST (test code = 3263) . Negative - Negative POCT U NIT (test code = 3262) . Negative - Negative POCT U PROT (test code = 3259) trace Negative - Negative POCT U GLU (test code = 3256) neg Negative - Negative POCT U KETONE (test code = 3258) . Negative - Negative POCT U UROBILI (test code = 3260) . 0.2-1 POCT U BILI (test code = 3261) . Negative - Negative POCT U BLD (test code = 3257) . Negative - Negative POCT U COLOR (test code = 3266) POCT U APPEAR (test code = 3267) [facility] URINALYSIS W SPECIFIC [id number] 16:01:00 Test Item Value Reference Range Interpretation Comments POCT U SP GRAV (test code = 3255) . 1.005-1.025 POCT PH U (test code = 3254) . 5-8 POCT U LEUK EST (test code = 3263) . Negative - Negative POCT U NIT (test code = 3262) . Negative - Negative POCT U PROT (test code = 3259) trace Negative - Negative POCT U GLU (test code = 3256) neg Negative - Negative POCT U KETONE (test code = 3258) . Negative - Negative POCT U UROBILI (test code = 3260) . 0.2-1 POCT U BILI (test code = 3261) . Negative - Negative POCT U BLD (test code = 3257) . Negative - Negative POCT U COLOR (test code = 3266) POCT U APPEAR (test code = 3267) [facility] URINALYSIS W SPECIFIC [id number] 21:34:00 Test Item Value Reference Range Interpretation Comments POCT U SP GRAV (test code = 3255) . 1.005-1.025 POCT PH U (test code = 3254) . 5-8 POCT U LEUK EST (test code = 3263) . Negative - Negative POCT U NIT (test code = 3262) . Negative - Negative POCT U PROT (test code = 3259) trace Negative - Negative POCT U GLU (test code = 3256) neg Negative - Negative POCT U KETONE (test code = 3258) . Negative - Negative POCT U UROBILI (test code = 3260) . 0.2-1 POCT U BILI (test code = 3261) . Negative - Negative POCT U BLD (test code = 3257) . Negative - Negative POCT U COLOR (test code = 3266) . POCT U APPEAR (test code = 3267) [facility] URINALYSIS W SPECIFIC [id number] 19:54:00 Test Item Value Reference Range Interpretation Comments POCT U SP GRAV (test code = 3255) . 1.005-1.025 POCT PH U (test code = 3254) . 5-8 POCT U LEUK EST (test code = 3263) . Negative - Negative POCT U NIT (test code = 3262) . Negative - Negative POCT U PROT (test code = 3259) trace Negative - Negative POCT U GLU (test code = 3256) neg Negative - Negative POCT U KETONE (test code = 3258) . Negative - Negative POCT U UROBILI (test code = 3260) . 0.2-1 POCT U BILI (test code = 3261) . Negative - Negative POCT U BLD (test code = 3257) . Negative - Negative POCT U COLOR (test code = 3266) POCT U APPEAR (test code = 3267) [facility] URINALYSIS W SPECIFIC [id number] 19:54:00 Test Item Value Reference Range Interpretation Comments POCT U SP GRAV (test code = 3255) . 1.005-1.025 POCT PH U (test code = 3254) . 5-8 POCT U LEUK EST (test code = 3263) . Negative - Negative POCT U NIT (test code = 3262) . Negative - Negative POCT U PROT (test code = 3259) trace Negative - Negative POCT U GLU (test code = 3256) neg Negative - Negative POCT U KETONE (test code = 3258) . Negative - Negative POCT U UROBILI (test code = 3260) . 0.2-1 POCT U BILI (test code = 3261) . Negative - Negative POCT U BLD (test code = 3257) . Negative - Negative POCT U COLOR (test code = 3266) POCT U APPEAR (test code = 3267) [facility] URINALYSIS W SPECIFIC [id number] 15:48:00 Test Item Value Reference Range Interpretation Comments POCT U SP GRAV (test code = 3255) . 1.005-1.025 POCT PH U (test code = 3254) . 5-8 POCT U LEUK EST (test code = 3263) . Negative - Negative POCT U NIT (test code = 3262) . Negative - Negative POCT U PROT (test code = 3259) TRACE Negative - Negative POCT U GLU (test code = 3256) NEG Negative - Negative POCT U KETONE (test code = 3258) . Negative - Negative POCT U UROBILI (test code = 3260) . 0.2-1 POCT U BILI (test code = 3261) . Negative - Negative POCT U BLD (test code = 3257) . Negative - Negative POCT U COLOR (test code = 3266) POCT U APPEAR (test code = 3267) [facility] URINALYSIS W SPECIFIC [id number] 15:48:00 Test Item Value Reference Range Interpretation Comments POCT U SP GRAV (test code = 3255) . 1.005-1.025 POCT PH U (test code = 3254) . 5-8 POCT U LEUK EST (test code = 3263) . Negative - Negative POCT U NIT (test code = 3262) . Negative - Negative POCT U PROT (test code = 3259) TRACE Negative - Negative POCT U GLU (test code = 3256) NEG Negative - Negative POCT U KETONE (test code = 3258) . Negative - Negative POCT U UROBILI (test code = 3260) . 0.2-1 POCT U BILI (test code = 3261) . Negative - Negative POCT U BLD (test code = 3257) . Negative - Negative POCT U COLOR (test code = 3266) POCT U APPEAR (test code = 3267) [facility] URINALYSIS W SPECIFIC [id number] 20:22:00 Test Item Value Reference Range Interpretation Comments POCT U SP GRAV (test code = 3255) . 1.005-1.025 POCT PH U (test code = 3254) . 5-8 POCT U LEUK EST (test code = 3263) . Negative - Negative POCT U NIT (test code = 3262) . Negative - Negative POCT U PROT (test code = 3259) TRACE Negative - Negative POCT U GLU (test code = 3256) NEG Negative - Negative POCT U KETONE (test code = 3258) . Negative - Negative POCT U UROBILI (test code = 3260) . 0.2-1 POCT U BILI (test code = 3261) . Negative - Negative POCT U BLD (test code = 3257) . Negative - Negative POCT U COLOR (test code = 3266) POCT U APPEAR (test code = 3267) [facility] URINALYSIS W SPECIFIC [id number] 20:22:00 Test Item Value Reference Range Interpretation Comments POCT U SP GRAV (test code = 3255) . 1.005-1.025 POCT PH U (test code = 3254) . 5-8 POCT U LEUK EST (test code = 3263) . Negative - Negative POCT U NIT (test code = 3262) . Negative - Negative POCT U PROT (test code = 3259) TRACE Negative - Negative POCT U GLU (test code = 3256) NEG Negative - Negative POCT U KETONE (test code = 3258) . Negative - Negative POCT U UROBILI (test code = 3260) . 0.2-1 POCT U BILI (test code = 3261) . Negative - Negative POCT U BLD (test code = 3257) . Negative - Negative POCT U COLOR (test code = 3266) POCT U APPEAR (test code = 3267) [facility] PEL[facility] > 14 [id number] 18:46:28HISTORY: Abdominal pain. TECHNIQUE: Routine OB sonography of the gravid uterus is completed. ? GA: 20 weeks and 4 days. FINDINGS: Single live IUP is confirmed. MEASUREMENTS: ? RATIOS:BPD = 4.90 cm. = 20 weeks 6 day ? HC/AC = 1.12(0.96-1.18 )HC ?= 17.77 cm. = 20 weeks 2 day ? FL/AC = 21 (20 ? 24 )AC ? = 15.80 cm. = 21 weeks 0 day? FL/BPD= 69( 71 ? 87 )FL ?= 3.39 cm. = 20 weeks 5 day COMPOSITE AGE = 20 weeks 5 day PLACENTA / AMNIOTIC FLUID: ?Amniotic fluid is normal. ?RONY = 17.11 cm. ?Placenta is anterior Grade 0. ?No evidence of placenta previa. ? FETUS:Normal four-chambered heart. ?FHR = 143 BPMThree vessels of umbilical cord identified. stomach seen on the left side.Normal kidneys and bladder.Normal head and spine. WEIGHT: 375 gm.JOSE A: 08/26/2020. CONCLUSION: Single live IUP of 20 weeksand 5 day ?in breech positionconfirmed. ?JUAN RAMON HENRIQUEZ M.D., D.A.B.R. [facility], Radiant Results Inft User - 04/13/2020 1:47 PM CDTHISTORY: Abdominal pain.TECHNIQUE: Routine OB sonography of the gravid uterus is completed. GA: 20 weeks and 4 days.FINDINGS: Single live IUP is confirmed. MEASUREMENTS: RATIOS:BPD = 4.90 cm. = 20 weeks 6 day HC/AC = 1.12(0.96- 1.18 )HC = 17.77 cm. = 20 weeks 2 day FL/AC = 21 (20 ? 24 )AC = 15.80 cm. = 21 weeks 0 day FL/BPD= 69( 71 ? 87 )FL = 3.39 cm. = 20 weeks 5 dayCOMPOSITE AGE = 20 weeks 5 dayPLACENTA / AMNIOTIC FLUID: Amniotic fluid is normal. RONY = 17.11 cm. Placenta is anterior Grade 0. No evidence of placenta previa. FETUS:Normal four-chambered heart. FHR = 143 BPMThree vessels of umbilical cord identified. stomach seen on the left side.Normal kidneys and bladder.Normal head and spine. WEIGHT: 375 gm.JOSE A: 08/26/2020.CONCL USION: Single live IUP of 20 weeks and 5 day in breech positionconfirmed. JUAN RAMON HENRIQUEZ M.D., D.A.B.R.[facility] (ID NOW RAPID TESTING)2020-04-13 17:44:00 Test Item Value Reference Range Interpretation Comments SARS-CoV-2 Rapid ID NOW Not Detected Not Detected (test code = 29998-9) RAFAEL (test code = RAFAEL) ID NOW COVID-19 Assay is an isothermal nucleic acid amplification test intended for the qualitative detection of nucleic acid from SARS-CoV-2 viral RNA in nasopharyngeal (CUSTOMER MANAGER) specimens. It is used under Emergency Use Authorization (EUA) by FDA. The limit of detection (LOD) of the assay is 125 Genome Equivalents/mL. A positive result is indicative of the presence of SARS-CoV-2 RNA. ?Clinical correlation with patient history and other diagnostic information is necessary to determine patient infection status. A negative (Not Detected) result does not preclude SARS-CoV-2 infection. In patients with clinical symptoms and other tests that are consistent with SARS-CoV-2 infection, negative results should be treated as presumptive negative and a new specimen should be tested with alternative PCR molecular test. Invalid: Please collect a new specimen for repeat patient testing if clinically indicated. Lab Interpretation Normal (test code = 55181-1) [facility] URINALYSIS W SPECIFIC [id number] 19:48:00 Test Item Value Reference Range Interpretation Comments POCT U SP GRAV (test code = 3255) . 1.005-1.025 POCT PH U (test code = 3254) . 5-8 POCT U LEUK EST (test code = 3263) . Negative - Negative POCT U NIT (test code = 3262) . Negative - Negative POCT U PROT (test code = 3259) trace Negative - Negative POCT U GLU (test code = 3256) neg Negative - Negative POCT U KETONE (test code = 3258) . Negative - Negative POCT U UROBILI (test code = 3260) .. 0.2-1 POCT U BILI (test code = 3261) . Negative - Negative POCT U BLD (test code = 3257) . Negative - Negative POCT U COLOR (test code = 3266) POCT U APPEAR (test code = 3267) [facility] URINALYSIS W SPECIFIC [id number] 19:31:00 Test Item Value Reference Range Interpretation Comments POCT U SP GRAV (test code = 3255) n/a 1.005-1.025 POCT PH U (test code = 3254) n/a 5-8 POCT U LEUK EST (test code = 3263) n/a Negative - Negative POCT U NIT (test code = 3262) n/a Negative - Negative POCT U PROT (test code = 3259) neg Negative - Negative POCT U GLU (test code = 3256) neg Negative - Negative POCT U KETONE (test code = 3258) n/a Negative - Negative POCT U UROBILI (test code = 3260) n/a 0.2-1 POCT U BILI (test code = 3261) n/a Negative - Negative POCT U BLD (test code = 3257) n/a Negative - Negative POCT U COLOR (test code = 3266) POCT U APPEAR (test code = 3267) [facility] URINALYSIS W SPECIFIC [id number] 19:42:00 Test Item Value Reference Range Interpretation Comments POCT U SP GRAV (test code = 3255) . 1.005-1.025 POCT PH U (test code = 3254) . 5-8 POCT U LEUK EST (test code = 3263) . Negative - Negative POCT U NIT (test code = 3262) . Negative - Negative POCT U PROT (test code = 3259) neg Negative - Negative POCT U GLU (test code = 3256) neg Negative - Negative POCT U KETONE (test code = 3258) . Negative - Negative POCT U UROBILI (test code = 3260) . 0.2-1 POCT U BILI (test code = 3261) . Negative - Negative POCT U BLD (test code = 3257) . Negative - Negative POCT U COLOR (test code = 3266) . POCT U APPEAR (test code = 3267) [facility] URINALYSIS W SPECIFIC [id number] 19:42:00 Test Item Value Reference Range Interpretation Comments POCT U SP GRAV (test code = 3255) . 1.005-1.025 POCT PH U (test code = 3254) . 5-8 POCT U LEUK EST (test code = 3263) . Negative - Negative POCT U NIT (test code = 3262) . Negative - Negative POCT U PROT (test code = 3259) neg Negative - Negative POCT U GLU (test code = 3256) neg Negative - Negative POCT U KETONE (test code = 3258) . Negative - Negative POCT U UROBILI (test code = 3260) . 0.2-1 POCT U BILI (test code = 3261) . Negative - Negative POCT U BLD (test code = 3257) . Negative - Negative POCT U COLOR (test code = 3266) . POCT U APPEAR (test code = 3267) [facility] [id number] 19:15:00 Test Item Value Reference Range Interpretation Comments POCT PREG (test code = 1605) Positive On board controls acceptable with C Yes Line (test code = 3574) POCT PREG LOT # (test code = 3575) POCT PREG TEST DATE (test code = 3576) [facility] URINALYSIS W/O SPECIFIC [id number] 19:15:00 Test Item Value Reference Range Interpretation Comments POCT PH U (test code = 3254) 7 mg/dl 5-8 POCT U LEUK EST (test code = neg Negative - Negative 3263) POCT U NIT (test code = 3262) neg Negative - Negative POCT U PROT (test code = 3259) trace Negative - Negative POCT U GLU (test code = 3256) neg Negative - Negative POCT U KETONE (test code = 3258) neg Negative - Negative POCT U BLD (test code = 3257) neg Negative - Negative Lab Interpretation (test code = Abnormal 06040-3) [facility] [id number] 19:15:00 Test Item Value Reference Range Interpretation Comments POCT PREG (test code = 1605) Positive On board controls acceptable with C Yes Line (test code = 3574) POCT PREG LOT # (test code = 3575) POCT PREG TEST DATE (test code = 3576) [facility] URINALYSIS W/O SPECIFIC [id number] 19:15:00 Test Item Value Reference Range Interpretation Comments POCT PH U (test code = 3254) 7 mg/dl 5-8 POCT U LEUK EST (test code = neg Negative - Negative 3263) POCT U NIT (test code = 3262) neg Negative - Negative POCT U PROT (test code = 3259) trace Negative - Negative POCT U GLU (test code = 3256) neg Negative - Negative POCT U KETONE (test code = 3258) neg Negative - Negative POCT U BLD (test code = 3257) neg Negative - Negative Lab Interpretation (test code = Abnormal 78662-8) [facility] [id number] 19:15:00 Test Item Value Reference Range Interpretation Comments POCT PREG (test code = 1605) Positive On board controls acceptable with C Yes Line (test code = 3574) POCT PREG LOT # (test code = 3575) POCT PREG TEST DATE (test code = 3576) [facility]/O SPECIFIC [id number] 19:15:00 Test Item Value Reference Range Interpretation Comments POCT PH U (test code = 3254) 7 mg/dl 5-8 POCT U LEUK EST (test code = neg Negative - Negative 3263) POCT U NIT (test code = 3262) neg Negative - Negative POCT U PROT (test code = 3259) trace Negative - Negative POCT U GLU (test code = 3256) neg Negative - Negative POCT U KETONE (test code = 3258) neg Negative - Negative POCT U BLD (test code = 3257) neg Negative - Negative Lab Interpretation (test code = Abnormal 62551-8) [facility]
[2022-08-23] MEDS ORDERED: IBUPROFEN 400 MG TAB ONE (10:31)
--- NOTE | 2022-08-23 11:10 | RAD REPORT ---
EXAM DESCRIPTION: RAD - Foot Right 3 View - 08/23/2022 10:19 am CLINICAL HISTORY: PAIN COMPARISON: No comparisonsmade selection FINDINGS: No fracture, dislocation or periosteal reaction. No acute or suspicious bone or joint find ing. No air or foreign body in the soft tissues. IMPRESSION: Negative right foot examination.
--- NOTE | 2022-08-23 11:13 | ER ---
Nurse's Notes [facility] Name: Arabella Crisostomo Age: 27 yrs Sex: Female : 1995 Arrival Date: 08/23/2022 Time: 10:00 Bed 12 Private MD: Diagnosis: Sprain of foot Presentation: 08/23 10:07 Chief complaint: [place] and heard loud pop in right foot while descending stairs hb yesterday, now c/o right foot pain 05/06. Unable to bear weight. Coronavirus screen: At this time, the client does not indicate any symptoms associated with coronavirus-19. Ebola Screen: No symptoms or risks identified at this time. Initial Sepsis Screen: Does the patient meet any 2 criteria? No. Patient's initial sepsis screen is negative. Does the patient have a suspected source of infection? No. Patient's initial sepsis screen is negative. Risk Assessment: Do you want to hurt yourself or someone else? Patient reports no desire to harm self or others. Onset of symptoms was August 22, 2022. 10:07 Method Of Arrival: Wheelchair hb 10:07 Acuity: TATYANA 4 hb Historical: - Allergies: 10:09 Codeine; hb 10:09 tramadol; hb - PSHx: 10:09 Cholecystectomy; section; x 2; hb - Immunization history:: Adult Immunizations unknown. - Social history:: Smoking status: Patient reports the use of cigarette tobacco products. Screenin:15 [facility] ED Fall Risk Assessment (Adult) History of falling in the last 3 months, aa5 including since admission Yes- single mechanical fall (1 pt) Confusion or Disorientation No (0 pts) Intoxicated or Sedated No (0 pts) Impaired Gait Yes (1 pt) Mobility Assist Device Used No (0 pt) Altered Elimination No (0 pt) Score/Fall Risk Level 0 - 2 = Low Risk Oriented to surroundings, Maintained a safe environment, Educated pt \T\ family on fall prevention, incl call for assistance when getting out of bed. Abuse screen: Denies threats or abuse. Nutritional screening: No deficits noted. Tuberculosis screening: No symptoms or risk factors identified. Assessment: 10:15 General: Appears uncomfortable, Behavior is calm, cooperative. Pain: Complains of pain aa5 in dorsum of right foot Pain currently is 10 out of 10 on a pain scale. Quality of pain is described as tender, throbbing. Neuro: Level of Consciousness is awake, alert, obeys commands, Oriented to person, place, time, situation. Cardiovascular: Patient's skin is warm and dry. Respiratory: Airway is patent Respiratory effort is even, unlabored, Respiratory pattern is regular, symmetrical. GI: No signs and/or symptoms were reported involving the gastrointestinal system. : No signs and/or symptoms were reported regarding the genitourinary system. EENT: No signs and/or symptoms were reported regarding the EENT system. Derm: Skin is pink, warm \T\ dry. Musculoskeletal: Range of motion: intact in all extremities. 11:45 Reassessment: Patient is alert, oriented x 3, equal unlabored respirations, skin aa5 warm/dry/pink. Vital Signs: 10:07 BP 130 / 89; Pulse 66; Resp 16; Temp 97.8; Weight 83.91 kg; Height 5 ft. 4 in. (162.56 hb cm); Pain 10/10; 10:07 Body Mass Index 31.75 (83.91 kg, 162.56 cm) hb ED Course: 10:00 Patient arrived in ED. mr 10:01 Rae Lynne, [facility] snw 10:01 Steve Sher MD is Attending Physician. snw 10:09 Triage completed. hb 10:09 Arm band placed on. hb 10:15 Patient has correct armband on for positive identification. Bed in low position. Call aa5 light in reach. Side rails up X 1. 10:20 Foot Right 3 View XRAY In Process Unspecified. EDMS 11:45 No provider procedures requiring assistance completed. Patient did not have IV access aa5 during this emergency room visit. Administered Medications: 10:33 Drug: Motrin (ibuprofen) 800 mg Route: PO; aa5 11:47 Follow up: Response: No adverse reaction aa5 Medication: 11:47 VIS not applicable for this client. aa5 Outcome: 11:12 Discharge ordered by . snw 11:45 Discharged to home via wheelchair, with crutches, with family. aa5 11:45 Condition: stable 11:45 Discharge instructions given to patient, Instructed on discharge instructions, follow up and referral plans. medication usage, Demonstrated understanding of instructions, follow-up care, medications, Prescriptions given X 1. 11:47 Patient left the ED. aa5 Signatures: Dispatcher [employer] EDMS Rae Lynne, CHACE-C ALARM SIGNAL OPERATOR-Kyreew Santino Steph LeonelLaverne RN RN aa5 Theresa Akins RN RN hb Corrections: (The following items were deleted from the chart) 10:09 10:09 Allergies: No Known Allergies; hb hb
--- NOTE | 2022-08-23 11:13 | EDPHYS ---
Physician Documentation [facility] Name: Arabella Crisostomo Age: 27 yrs Sex: Female : 1995 Arrival Date: 08/23/2022 Time: 10:00 Bed 12 Private MD: ED Physician Steve Sher HPI: 08/23 10:07 This 27 yrs old Female presents to ER via Unassigned with complaints of Fall snw Injury, Foot Injury. 10:07 Details of fall: The patient fell from a height, down approximately 2 stairs. Onset: snw The symptoms/episode began/occurred suddenly, last night. Associated injuries: The patient sustained dorsum of right foot and lateral side of right foot. Severity of symptoms: At their worst the symptoms were moderate, severe. The patient has not experienced similar symptoms in the past. It is unknown whether or not the patient has recently seen a physician. no LOC, pt states she heard a loud pop when foot pain occurred. Historical: - Allergies: 10:09 Codeine; hb 10:09 tramadol; hb - PSHx: 10:09 Cholecystectomy; section; x 2; hb - Immunization history:: Adult Immunizations unknown. - Social history:: Smoking status: Patient reports the use of cigarette tobacco products. ROS: 10:07 Constitutional: Negative for fever, chills, and weight loss, Eyes: Negative for injury, snw pain, redness, and discharge, ENT: Negative for injury, pain, and discharge, Neck: Negative for injury, pain, and swelling, Cardiovascular: Negative for chest pain, palpitations, and edema, Respiratory: Negative for shortness of breath, cough, wheezing, and pleuritic chest pain, Abdomen/GI: Negative for abdominal pain, nausea, vomiting, diarrhea, and constipation, Back: Negative for injury and pain, : Negative for injury, bleeding, discharge, and swelling, Skin: Negative for injury, rash, and discoloration, Neuro: Negative for headache, weakness, numbness, tingling, and seizure, Psych: Negative for depression, anxiety, suicide ideation, homicidal ideation, and hallucinations. 10:07 MS/extremity: Positive for injury or acute deformity, decreased range of motion, pain, tenderness, of the dorsum of right foot and lateral side of right foot. Exam: 10:06 Constitutional: This is a well developed, well nourished patient who is awake, alert, snw and in no acute distress. Head/Face: Normocephalic, atraumatic. Eyes: Pupils equal round and reactive to light, extra-ocular motions intact. Lids and lashes normal. Conjunctiva and sclera are non-icteric and not injected. Cornea within normal limits. Periorbital areas with no swelling, redness, or edema. Neck: Trachea midline, no thyromegaly or masses palpated, and no cervical lymphadenopathy. Supple, full range of motion without nuchal rigidity, or vertebral point tenderness. No Meningismus. Chest/axilla: Normal chest wall appearance and motion. Nontender with no deformity. No lesions are appreciated. Cardiovascular: Regular rate and rhythm with a normal S1 and S2. No gallops, murmurs, or rubs. Normal PMI, no JVD. No pulse deficits. Respiratory: Lungs have equal breath sounds bilaterally, clear to auscultation and percussion. No rales, rhonchi or wheezes noted. No increased work of breathing, no retractions or nasal flaring. Abdomen/GI: Soft, non-tender, with normal bowel sounds. No distension or tympany. No guarding or rebound. No evidence of tenderness throughout. Back: No spinal tenderness. No costovertebral tenderness. Full range of motion. Skin: Warm, dry with normal turgor. Normal color with no rashes, no lesions, and no evidence of cellulitis. Neuro: Awake and alert, GCS 15, oriented to person, place, time, and situation. Cranial nerves II-XII grossly intact. Motor strength 5/5 in all extremities. Sensory grossly intact. Cerebellar exam normal. Normal gait. Psych: Awake, alert, with orientation to person, place and time. Behavior, mood, and affect are within normal limits. 10:06 Musculoskeletal/extremity: Extremities: grossly normal except: noted in the lateral side of right foot and dorsum of right foot: decreased ROM, swelling, tenderness, ROM: no acute changes, Circulation is intact in all extremities. Sensation intact. Weight bearing: is unable to bear weight. Vital Signs: 10:07 BP 130 / 89; Pulse 66; Resp 16; Temp 97.8; Weight 83.91 kg; Height 5 ft. 4 in. (162.56 hb cm); Pain 10/10; 10:07 Body Mass Index 31.75 (83.91 kg, 162.56 cm) hb MDM: 10:07 Differential diagnosis: abrasion, fracture, sprain, strain. Data reviewed: vital signs, snw nurses notes. Counseling: I had a detailed discussion with the patient and/or guardian regarding: the historical points, exam findings, and any diagnostic results supporting the discharge/admit diagnosis, radiology results, the need for outpatient follow up, to return to the emergency department if symptoms worsen or persist or if there are any questions or concerns that arise at home. Special discussion: Based on the history and exam findings, there is no indication for further emergent testing or inpatient evaluation. I discussed with the patient/guardian the need to see the orthopedic surgeon for further evaluation of the symptoms. I discussed with the patient/guardian the need to see the primary care provider for further evaluation of the symptoms. 10:17 Patient medically screened. snw 11:11 Independent interpretation of the following test(s) in the Emergency Department X-Ray: snw My interpretation is negative for fx. 08/23 10:06 Order name: Foot Right 3 View XRAY; Complete Time: 11:11 snw 08/23 11:11 Order name: Post-op Orthopedic Shoe; Complete Time: 11:47 snw 08/23 11:13 Order name: Jc Wrap; Complete Time: 11:47 snw Administered Medications: 10:33 Drug: Motrin (ibuprofen) 800 mg Route: PO; aa5 11:47 Follow up: Response: No adverse reaction aa5 Disposition: 12:53 Co-signature as Attending Physician, Steve Sher MD I reviewed the patient's care rt provided by the Advanced Practice Provider and agree with the diagnosis and treatment plan. Disposition Summary: 08/23/22 11:12 Discharge Ordered Location: Home snw Condition: Stable snw Diagnosis - Sprain of foot snw Followup: snw - With: Emergency Department - When: As needed - Reason: Worsening of condition Followup: snw - With: Private Physician - When: 2 - 3 days - Reason: Recheck today's complaints, Continuance of care, Re-evaluation by your physician Discharge Instructions: - Discharge Summary Sheet snw - Foot Sprain snw - Foot Pain snw - RICE Therapy for Routine Care of Injuries snw Forms: - Medication Reconciliation Form snw - Thank You Letter snw - Antibiotic Education snw - Prescription Opioid Use snw Prescriptions: - Mobic 7.5 mg Oral Tablet - take 1 tablet by ORAL route once daily take with food; 20 tablet; Refills: 0, snw Product Selection Permitted Signatures: Dispatcher [employer] EDUT Rae Lynne FNP-C SEAT BUILDER-Csnw Laverne Castaneda RN RN aa5 Theresa Akins RN RN Steve Sher MD MD rt Corrections: (The following items were deleted from the chart) 10:09 10:09 Allergies: No Known Allergies; [facility]
[2022-08-23 11:51] VITALS: BP 130/89; TEMP 97.8
== END 2022-08-23 11:47 | disposition home or self-care (01) ==
LOC: ER 09:54
DX: S93.601A Unspecified sprain of right foot, initial encounter (principal); Z72.0 Tobacco use; Z88.5 Allergy status to narcotic agent
CPT/HCPCS: 99283

== ENCOUNTER 2023-03-22 17:00 | Emergency (ER) | payer OTHER ==
--- OUTSIDE RECORDS SUMMARY | 2023-03-22 17:11 | XMS REPORT | Continuity of Care Document ---
:1995 Author Organization [facility] t Address [address] [place] [address] [place] [id number] Care Team Providers Name Role Phone Provider, Marco [facility] Attending Clinician Unavailable Gracie Quintana Attending Clinician GRACIE LEYVA Attending Clinician Unavailable Doctor Unassigned, [place] Attending Clinician Unavailable Jesus Carbajal Attending Clinician JESUS HOFFMAN Attending Clinician Unavailable Visit, CarmeloRmchamol Nurse Attending Clinician Unavailable DEANGELO WEEKS Attending Clinician Unavailable Addison Pascual MD Attending Clinician Ultrasound, CarmeloMfash Attending Clinician Unavailable Radha Ortiz MD Attending Clinician Denisse Carrasquillo MD Attending Clinician AkinsiMelissa Hoang Attending Clinician [phone] ADDISON PASCUAL Admitting Clinician Unavailable DEANGELO WEEKS Admitting Clinician Unavailable Addison Pascual MD Admitting Clinician Payers Payer Name Policy Type Policy Number Effective Date Expiration Date [facility] [id number] 2019 [facility] MEDICAID 00:00:00 MEDICAID PENDING PENDING 2019 00:00:00 MEDICAID OF [place] [id number] 2019 00:00:00 Problems Condition Condition Condition Status Onset Resolution Last Treating Co mments Source Name Details Category Date Date Treatment Clinician Date Encounter Encounter Disease Active Uni vers for for 10-02 ity of surveillan [place] ce of 00 Medical contracept contracept Br anch tashi, tashi, unspecifie unspecifie d d contracept contracept kasandra kasandra Tubal Tubal Disease Active Univers ligation ligation 3-08 ity of status status 00:00: [place] [facility] 39 weeks 39 weeks Disease Active Unive rs gestation gestation 1-24 ity of of of 00:00: [place] 00 [facility] Branch Leakage of Leakage of Disease Active U nivers amniotic amniotic 1-24 ity of fluid fluid 00:00: [place] [facility] 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 Address at 36wks Overweight Overweight Disease Active U nivers 5-27 ity of 00:00: [place] [facility] Multiparit Multiparit Disease Active U nivers y y 5-27 ity of 00:00: [place] [facility] BMI BMI Disease Active Univers 27.0-27.9, 27.0-27.9, 5-27 it y of adult adult 00:00: [place] [facility] Branch BMI BMI Disease Active 2016-07 Univers 29.0-29.9, 29.0-29.9, 2-13 it y of adult adult 00:00: [place] [facility] Branch Screening Screening Disease Active 2016-07 Uni vers examinatio examinatio 2-13 it y of n for STD n for STD 00:00: [place] suggs (sexually (sexually 00 [facility] transmitte transmitte Br anch d disease) d disease) Need for Need for Disease Active 2016-07 Unive rs HPV HPV 2-13 ity of vaccinatio vaccinatio [place] [facility] Branch Class 1 Class 1 Disease Active 2016-07 Univers obesity obesity 2-13 ity of with body with body 00:00: [place] suggs mass index mass index 00 Me dical (BMI) of (BMI) of Branch 33.0 to 33.0 to 33.9 in 33.9 in adult, adult, unspecifie unspecifie d obesity d obesity type, type, unspecifie unspecifie d whether d whether serious serious comorbidit comorbidit y present y present BMI BMI Disease Active 2016-07 Univers 29.0-29.9, [...] of non-immune non-immune 00:00: g of this note Medical might be Branch different from [...] Univers INGREDI 1-21 ity of 00:00: [place] [facility] Codeine Propensi Active Rash Univers ty to 7-11 ity of adverse 00:00: [place] reaction 00 Medical s Branch CODEINE DRUG Active N/V Univers INGREDI 7-11 ity of 00:00: [place] 00 [facility] NO KNOWN Drug Active Univers ALLERGIE Class ity of S [facility] Social History Social Habit Start Date Stop Date Quantity Comments Source ASSERTION 2019-12-05 University of 00:00:00 [facility] Exposure to Not sure University of SARS-CoV-2 [place] [facility] (event) Branch Tobacco use and 2021-02-06 2021-02-06 Never used Universit y of exposure 00:00:00 00:00:00 [facility] Alcohol intake 2021-02-06 2021-02-06 Current University of 00:00:00 00:00:00 non-drinker of [facility] alcohol Branch (finding) Tobacco Comment 2016-09-26 2016-09-26 stopped smoking Univ ersity of 00:00:00 00:00:00 Saturday 09/23 [place] [facility] History of 2016-09-23 Smoker University of tobacco use 00:00:00 [facility] Sex Assigned At [birth year] Universit y of 00:00:00 00:00:00 [facility] Smoking Status Start Date Stop Date Source Former smoker 2021-02-06 00:00:00 2021-02-06 00:00:00 [facility] of [facility] Medications Ordered Filled Start Stop Current Ordering Indication Dosage Frequency Signature Comments Components Source Medication Medication Date Date Medication? Clinician (SIG) Name Name seferino 2020- No [id number] 5mL Take 5 mL Univers e-dextromet 02-06 by mouth ity of horphan 00:00: 04:59 every 4 [place] 6.25-15 00 :00 (four) Medical mg/5 mL hours as Branch syrup needed for Cough for up to 14 days. Yes [id number] 1{tbl} Take 1 Univers vitamin 1-25 tablet by ity of w/FA tablet 00:00: mouth [place] 00 daily. Medical Branch docusate Yes [id number] 240mg Take 1 U nivers calcium 240 1-25 capsule by it y of mg capsule 00:00: mouth [place] 00 daily as Medical needed for Branch Constipati on. ferrous Yes [id number] 325mg Take 1 Un jaz sulfate 325 1-25 tablet by ity of mg (65 mg 00:00: mouth 2 [place] iron) 00 (two) Medical tablet times Branch daily. ibuprofen Yes [id number] 600mg Take 1 Univers 600 mg 1-25 [...] hours. Indication s: acute pain simethicone Yes [id number] 80mg Take 1 Univers (GAS 1-25 tablet by ity of RELIEF, 00:00: mouth [place] SIMETHICONE 00 after Medical ,) 80 mg meals and Branch chewable at bedtime tablet as needed for Gas. Yes [id number] 1{tbl} Take 1 Univers vitamin 1-25 tablet by ity of w/FA tablet 00:00: mouth [place] 00 daily. Medical Branch docusate Yes [id number] 240mg Take 1 U nivers calcium 240 1-25 capsule by it y of mg capsule 00:00: mouth [place] 00 daily as Medical needed for Branch Constipati on. ferrous Yes [id number] 325mg Take 1 Un jaz sulfate 325 1-25 tablet by ity of mg (65 mg 00:00: mouth 2 [place] iron) 00 (two) Medical tablet times Branch daily. ibuprofen Yes [id number] 600mg Take 1 Univers 600 mg 1-25 [...] hours. Indication s: acute pain simethicone Yes [id number] 80mg Take 1 Univers (GAS 1-25 tablet by ity of RELIEF, 00:00: mouth [place] SIMETHICONE 00 after Medical ,) 80 mg meals and Branch chewable at bedtime tablet as needed for Gas. 202- No [id number] 1{tbl} Take 1 Univers vitamin 1-25 03-08 tablet by ity of w/FA tablet 00:00: 00:00 [place] :[place] daily. Medical Branch docusate 2020- No [id number] 240mg Take 1 Univers calcium 240 08-21 capsule by i ty of mg capsule 00:00: 00:00 mouth once [place] 00 :00 daily as Medical needed for Branch Constipati on. ferrous 2020- No [id number] 325mg Take 1 U nivers sulfate 325 08-21 tablet by it y of mg (65 mg 00:00: 00:00 [place] 2 [place] iron) 00 :00 (two) Medical tablet times Branch daily. ibuprofen 2020- No [id number] 600mg Take 1 Univers 600 mg 08-21 [...] Indication s: acute pain simethicone 2020- No [id number] 80mg Take 1 Univers (GAS 08-21 tablet by ity of RELIEF, 00:00: 00:00 mouth [place] SIMETHICONE 00 :00 after Medical ,) 80 mg meals and Branch chewable at bedtime tablet as needed for Gas. SELECT-OB + Yes [id number] TAKE 1 Univers DHA 29 mg 1-19 PACKET ity of iron-1 mg 00:00: DAILY [place] -250 mg 00 MOUTH Medical combo pack Branch SELECT-OB + Yes [id number] TAKE 1 Univers DHA 29 mg 1-19 PACKET ity of iron-1 mg 00:00: DAILY [place] -250 mg 00 MOUTH Medical combo pack Branch valACYclovi Yes [id number] 500mg Take 1 Univers r (VALTREX) 1-07 tablet by ity of 500 mg 00:00: mouth [place] tablet 00 daily. Medical Branch valACYclovi Yes [id number] 500mg Take 1 Univers r (VALTREX) 1-07 tablet by ity of 500 mg 00:00: mouth [place] tablet 00 daily. Medical Branch valACYclovi Yes [id number] 500mg Take 1 Univers r (VALTREX) 1-07 tablet by ity of 500 mg 00:00: mouth [place] tablet 00 daily. Medical Branch valACYclovi Yes [id number] 500mg Take 1 Univers r (VALTREX) 1-07 tablet by ity of 500 mg 00:00: mouth [place] tablet 00 daily. Medical Branch valACYclovi Yes [id number] 500mg Take 1 Univers r (VALTREX) 1-07 tablet by ity of 500 mg 00:00: mouth [place] tablet 00 daily. Medical Branch valACYclovi Yes [id number] 500mg Take 1 Univers r (VALTREX) 1-07 tablet by ity of 500 mg 00:00: mouth [place] tablet 00 daily. Medical Branch Yes [id number] 1{packe Take 1 Univers vit 6-01 t} Packet by ity of 33-iron-fol 00:00: mouth [place] ic-dha 00 daily. Medical (SELECT-OB Branch + DHA) 29 mg iron-1 mg -250 mg combo pack Yes [id number] 1{packe Take 1 Univers vit 6-01 t} Packet by ity of 33-iron-fol 00:00: mouth [place] ic-dha 00 daily. Medical ([facility] Branch + DHA) 29 mg iron-1 mg -250 mg combo pack Yes [id number] 1{packe Take 1 Univers vit 6-01 t} Packet by ity of 33-iron-fol 00:00: mouth [place] ic-dha 00 daily. Medical (SELECT-OB Branch + DHA) 29 mg iron-1 mg -250 mg combo pack Yes [id number] 1{packe Take 1 Univers vit 6-01 t} Packet by ity of 33-iron-fol 00:00: mouth [place] ic-dha 00 daily. Medical (SELECT-OB Branch + DHA) 29 mg iron-1 mg -250 mg combo pack Yes [id number] 1{packe Take 1 Univers vit 6-01 t} Packet by ity of 33-iron-fol 00:00: mouth [place] ic-dha 00 daily. Medical (SELECT-OB Branch + DHA) 29 mg iron-1 mg -250 mg combo pack 2020-0 Yes [id number] 1{packe Take 1 Univers vit 6-01 t} Packet by ity of 33-iron-fol 00:00: mouth [place] ic-dha 00 daily. Medical ([facility] Branch + DHA) 29 mg iron-1 mg -250 mg combo pack 2020-0 Yes [id number] 1{packe Take 1 Univers vit 6-01 t} Packet by ity of 33-iron-fol 00:00: mouth [place] ic-dha 00 daily. Medical (SELECT-OB Branch + DHA) 29 mg iron-1 mg -250 mg combo pack 2020-0 Yes [id number] 1{packe Take 1 Univers vit 6-01 t} Packet by ity of 33-iron-fol 00:00: mouth [place] ic-dha 00 daily. Medical (SELECT-OB Branch + DHA) 29 mg iron-1 mg -250 mg combo pack 2020-0 Yes [id number] 1{packe Take 1 Univers vit 6-01 t} Packet by ity of 33-iron-fol 00:00: mouth [place] ic-dha 00 daily. Medical ([facility]-OB Branch + DHA) 29 mg iron-1 mg -250 mg combo pack 2020-0 Yes [id number] 1{packe Take 1 Univers vit 6-01 t} Packet by ity of 33-iron-fol 00:00: mouth [place] ic-dha 00 daily. Medical (SELECT-OB Branch + DHA) 29 mg iron-1 mg -250 mg combo pack 2020-0 Yes [id number] 1{packe Take 1 Univers vit 6-01 t} Packet by ity of 33-iron-fol 00:00: mouth [place] ic-dha 00 daily. Medical (SELECT-OB Branch + DHA) 29 mg iron-1 mg -250 mg combo pack 2020-0 Yes [id number] 1{packe Take 1 Univers vit 6-01 t} Packet by ity of 33-iron-fol 00:00: mouth [place] ic-dha 00 daily. Medical (SELECT-OB Branch + DHA) 29 mg iron-1 mg -250 mg combo pack 2020-0 Yes [id number] 1{packe Take 1 Univers vit 6-01 t} Packet by ity of 33-iron-fol 00:00: mouth [place] ic-dha 00 daily. Medical (SELECT-OB Branch + DHA) 29 mg iron-1 mg -250 mg combo pack 2020-0 Yes [id number] 1{packe Take 1 Univers vit 6-01 t} Packet by ity of 33-iron-fol 00:00: mouth [place] ic-dha 00 daily. Medical (SELECT-OB Branch + DHA) 29 mg iron-1 mg -250 mg combo pack 2020-0 Yes [id number] 1{packe Take 1 Univers vit 6-01 t} Packet by ity of 33-iron-fol 00:00: mouth [place] ic-dha 00 daily. Medical (SELECT-OB Branch + DHA) 29 mg iron-1 mg -250 mg combo pack 2020-0 Yes [id number] 1{packe Take 1 Univers vit 6-01 t} Packet by ity of 33-iron-fol 00:00: mouth [place] ic-dha 00 daily. Medical (SELECT-OB Branch + DHA) 29 mg iron-1 mg -250 mg combo pack 2020-0 Yes [id number] 1{packe Take 1 Univers vit 6-01 t} Packet by ity of 33-iron-fol 00:00: mouth [place] ic-dha 00 daily. Medical (SELECT-OB Branch + DHA) 29 mg iron-1 mg -250 mg combo pack 2020-0 Yes [id number] 1{packe Take 1 Univers vit 6-01 t} Packet by ity of 33-iron-fol 00:00: mouth [place] ic-dha 00 daily. Medical (SELECT-OB Branch + DHA) 29 mg iron-1 mg -250 mg combo pack 2020-0 Yes [id number] 1{packe Take 1 Univers vit 6-01 t} Packet by ity of 33-iron-fol 00:00: mouth [place] ic-dha 00 daily. Medical (SELECT-OB Branch + DHA) 29 mg iron-1 mg -250 mg combo pack 2020-0 Yes [id number] 1{packe Take 1 Univers vit 6-01 t} Packet by ity of 33-iron-fol 00:00: mouth [place] ic-dha 00 daily. Medical (SELECT-OB Branch + DHA) 29 mg iron-1 mg -250 mg combo pack 2020-0 Yes [id number] 1{packe Take 1 Univers vit 6-01 t} Packet by ity of 33-iron-fol 00:00: mouth [place] ic-dha 00 daily. Medical (SELECT-OB Branch + DHA) 29 mg iron-1 mg -250 mg combo pack 2020-0 Yes [id number] 1{packe Take 1 Univers vit 6-01 t} Packet by ity of 33-iron-fol 00:00: mouth [place] ic-dha 00 daily. Medical (SELECT-OB Branch + DHA) 29 mg iron-1 mg -250 mg combo pack 2020-0 Yes [id number] 1{packe Take 1 Univers vit 6-01 t} Packet by ity of 33-iron-fol 00:00: mouth [place] ic-dha 00 daily. Medical (SELECT-OB Branch + DHA) 29 mg iron-1 mg -250 mg combo pack 2020-0 Yes [id number] 1{packe Take 1 Univers vit 6-01 t} Packet by ity of 33-iron-fol 00:00: mouth [place] ic-dha daily. Medical (SELECT-OB Branch + DHA) 29 mg iron-1 mg -250 mg combo pack 2020-0 Yes [id number] 1{packe Take 1 Univers vit 6-01 t} Packet by ity of 33-iron-fol 00:00: mouth [place] ic-dha 00 daily. Medical (SELECT-OB Branch + DHA) 29 mg iron-1 mg -250 mg combo pack 2020-0 Yes [id number] 1{packe Take 1 Univers vit 6-01 t} Packet by ity of 33-iron-fol 00:00: mouth [place] ic-dha 00 daily. Medical (SELECT-OB Branch + DHA) 29 mg iron-1 mg -250 mg combo pack 2020-0 Yes [id number] 1{packe Take 1 Univers vit 6-01 t} Packet by ity of 33-iron-fol 00:00: mouth [place] ic-dha 00 daily. Medical (SELECT-OB Branch + DHA) 29 mg iron-1 mg -250 mg combo pack 2020-0 Yes [id number] 1{packe Take 1 Univers vit 6-01 t} Packet by ity of 33-iron-fol 00:00: mouth [place] ic-dha 00 daily. Medical (SELECT-OB Branch + DHA) 29 mg iron-1 mg -250 mg combo pack 2020- No [id number] 1{packe Take 1 Univers vit 12-26 t} Packet by ity of 33-iron-fol 00:00: [...] every 6 Medical (six) Branch hours. Yes [id number] 1{tbl} Take 1 U nivers multivitami 3-02 tablet by ity of n ( 00:00: mouth [place] VITAMIN) 00 daily. Medical tablet Branch 2019- No [id number] 1{tbl} Take 1 Univers multivitami 3-02 05-27 tablet by it y of n ( 00:00: 00:[place] VITAMIN[place] 00 :00 daily. Medical tablet Branch 2019- No [id number] 1{tbl} Take 1 Univers multivitami 3-02 05-27 tablet by it y of n ( 00:00: 00:00 [place] VITAMIN) 00 :00 daily. Medical tablet Branch 2019- No [id number] 1{tbl} Take 1 Univers multivitami 3-02 05-27 tablet by it y of n ( 00:00: 00:00 [place] VITAMIN) 00 :00 daily. Medical tablet Branch No known No Univers medications ity of [facility] No known No Univers medications ity of [facility] Immunizations Ordered Filled Immunization Date Status Comments [facility] e Immunization Name Name Varicella 2020-08-21 Completed University of (varivax)(chicken 00:00:00 [place] M edical pox) Branch HPV9 2020-08-21 Completed University of 00:00:00 [facility] Varicella 2020-08-21 Completed University of (varivax)(chicken 00:00:00 [place] M edical pox) Branch HPV9 2020-08-21 Completed University of 00:00:00 [facility] Varicella 2020-08-21 Completed University of (varivax)(chicken 00:00:00 [facility] [place] [facility] edical pox) Branch HPV9 2020-08-21 Completed University of 00:00:00 [facility] Varicella 2020-08-21 Completed University of (varivax)(chicken 00:00:00 [place] M edical pox) Branch HPV9 2020-08-21 Completed University of 00:00:00 [facility] TDAP 2020-06-05 Completed University of 00:00:00 [facility] TDAP 2020-06-05 Completed University of 00:00:00 [facility] TDAP 2020-06-05 Completed University of 00:00:00 [facility] TDAP 2020-06-05 Completed University of 00:00:00 [facility] TDAP 2020-06-05 Completed University of 00:00:00 [facility] TDAP 2020-06-05 Completed University of 00:00:00 [facility] TDAP 2020-06-05 Completed University of 00:00:00 [facility] TDAP 2020-06-05 Completed University of 00:00:00 [facility] TDAP 2020-06-05 Completed University of 00:00:00 [facility] TDAP 2020-06-05 Completed University of 00:00:00 [facility] TDAP 2020-06-05 Completed University of 00:00:00 [facility] TDAP 2020-06-05 Completed University of 00:00:00 [facility] TDAP 2020-06-05 Completed University of 00:00:00 [facility] TDAP 2020-06-05 Completed University of 00:00:00 [facility] TDAP 2020-06-05 Completed University of 00:00:00 [facility] TDAP 2020-06-05 Completed University of 00:00:00 [facility] TDAP 2020-06-05 Completed University of 00:00:00 [place] [facility] TDAP 2020-06-05 Completed University of 00:00:00 [place] [facility] Influenza Virus 2020-05-22 Completed Universit y [...] y of Vaccine Quad .5 mL 00:00:00 [place] [facility] IM 6+ MO Branch HPV9 2017-07-08 Completed University of 00:00:00 [place] [facility] HPV9 2017-07-08 Completed University of 00:00:00 [place] [facility] HPV9 2017-07-08 Completed University of 00:00:00 [place] [facility] HPV9 2017-07-08 Completed University of 00:00:00 [place] [facility] HPV9 2017-07-08 Completed University of 00:00:00 [facility] Branch HPV9 2017-07-08 Completed University of 00:00:00 [place] [facility] HPV9 2017-07-08 Completed University of 00:00:00 [place] [facility] HPV9 2017-07-08 Completed University of 00:00:00 [place] [facility] HPV9 2017-07-08 Completed University of 00:00:00 [place] [facility] HPV9 2017-07-08 Completed University of 00:00:00 [place] [facility] HPV9 2017-07-08 Completed University of 00:00:00 [place] [facility] HPV9 2017-07-08 Completed University of 00:00:00 [place] [facility] HPV9 2017-07-08 Completed University of 00:00:00 [place] [facility] HPV9 2017-07-08 Completed University of 00:00:00 [place] [facility] HPV9 2017-07-08 Completed University of 00:00:00 [place] [facility] HPV9 2017-07-08 Completed University of 00:00:00 [place] [facility] HPV9 2017-07-08 Completed University of 00:00:00 [place] [facility] HPV9 2017-07-08 Completed University of 00:00:00 [place] [facility] HPV9 2017-07-08 Completed University of 00:00:00 [facility] Branch HPV9 2017-07-08 Completed University of 00:00:00 [facility] Branch HPV9 2017-07-08 Completed University of 00:00:00 [facility] Branch HPV9 2017-07-08 Completed University of 00:00:00 [place] [facility] HPV9 2017-07-08 Completed University of 00:00:00 [place] [facility] HPV9 2017-07-08 Completed University of 00:00:00 [place] [facility] HPV9 2017-07-08 Completed University of 00:00:00 [place] [facility] HPV9 2017-07-08 Completed University of 00:00:00 [place] [facility] HPV9 2017-07-08 Completed University of 00:00:00 [place] [facility] HPV9 2017-07-08 Completed University of 00:00:00 [place] [facility] HPV9 2017-07-08 Completed University of 00:00:00 [place] [facility] HPV9 2017-07-08 Completed University of 00:00:00 [place] [facility] HPV9 2017-07-08 Completed University of 00:00:00 [place] [facility] HPV9 2017-07-08 Completed University of 00:00:00 [place] [facility] HPV9 2017-07-08 Completed University of 00:00:00 [place] [facility] HPV9 2017-07-08 Completed University of 00:00:00 [place] [facility] HPV9 2017-07-08 Completed University of 00:00:00 [place] [facility] HPV9 2017-07-08 Completed University of 00:00:00 [place] [facility] HPV9 2017-07-08 Completed University of 00:00:00 [place] [facility] HPV9 2017-07-08 Completed University of 00:00:00 [place] [facility] HPV9 2017-07-08 Completed University of 00:00:00 [facility] Branch HPV9 2017-07-08 Completed University of 00:00:00 [facility] Branch HPV9 2017-05-28 Completed University of 00:00:00 [place] [facility] HPV9 2017-05-28 Completed University of 00:00:00 [place] [facility] HPV9 2017-05-28 Completed University of 00:00:00 [place] [facility] HPV9 2017-05-28 Completed University of 00:00:00 [place] [facility] HPV9 2017-05-28 Completed University of 00:00:00 [place] [facility] HPV9 2017-05-28 Completed University of 00:00:00 [place] [facility] HPV9 2017-05-28 Completed University of 00:00:00 [place] [facility] HPV9 2017-05-28 Completed University of 00:00:00 [place] [facility] HPV9 2017-05-28 Completed University of 00:00:00 [place] [facility] HPV9 2017-05-28 Completed University of 00:00:00 [place] [facility] HPV9 2017-05-28 Completed University of 00:00:00 [place] [facility] HPV9 2017-05-28 Completed University of 00:00:00 [place] [facility] HPV9 2017-05-28 Completed University of 00:00:00 [place] [facility] HPV9 2017-05-28 Completed University of 00:00:00 [place] [facility] HPV9 2017-05-28 Completed University of 00:00:00 [place] [facility] HPV9 2017-05-28 Completed University of 00:00:00 [place] [facility] HPV9 2017-05-28 Completed University of 00:00:00 [place] [facility] HPV9 2017-05-28 Completed University of 00:00:00 [place] [facility] HPV9 2017-05-28 Completed University of 00:00:00 [place] [facility] HPV9 2017-05-28 Completed University of 00:00:00 [place] [facility] HPV9 2017-05-28 Completed University of 00:00:00 [place] [facility] HPV9 2017-05-28 Completed University of 00:00:00 [place] [facility] HPV9 2017-05-28 Completed University of 00:00:00 [place] [facility] HPV9 2017-05-28 Completed University of 00:00:00 [place] [facility] HPV9 2017-05-28 Completed University of 00:00:00 [place] [facility] HPV9 2017-05-28 Completed University of 00:00:00 [place] [facility] HPV9 2017-05-28 Completed University of 00:00:00 [place] [facility] HPV9 2017-05-28 Completed University of 00:00:00 [place] [facility] HPV9 2017-05-28 Completed University of 00:00:00 [place] [facility] HPV9 2017-05-28 Completed University of 00:00:00 [place] [facility] HPV9 2017-05-28 Completed University of 00:00:00 [place] [facility] HPV9 2017-05-28 Completed University of 00:00:00 [place] [facility] HPV9 2017-05-28 Completed University of 00:00:00 [place] [facility] HPV9 2017-05-28 Completed University of 00:00:00 [place] [facility] HPV9 2017-05-28 Completed University of 00:00:00 [place] [facility] HPV9 2017-05-28 Completed University of 00:00:00 [place] [facility] HPV9 2017-05-28 Completed University of 00:00:00 [place] [facility] HPV9 2017-05-28 Completed University of 00:00:00 [place] [facility] HPV9 2017-05-28 Completed University of 00:00:00 [place] [facility] HPV9 2017-05-28 Completed University of 00:00:00 [facility] Tdap 2017-03-03 Completed [facility] 00:00:00 [facility] Tdap 2017-03-03 Completed [facility] 00:00:00 [facility] TDAP 2017-03-03 Completed [facility] 00:00:00 [facility] TDAP 2017-03-03 Completed [facility] 00:00:00 [facility] TDAP 2017-03-03 Completed [facility] 00:00:00 [facility] TDAP 2017-03-03 Completed [facility] 00:00:00 [facility] TDAP 2017-03-03 Completed [facility] 00:00:00 [facility] TDAP 2017-03-03 Completed [facility] 00:00:00 [facility] TDAP 2017-03-03 Completed [facility] 00:00:00 [facility] TDAP 2017-03-03 Completed [facility] 00:00:00 [facility] TDAP 2017-03-03 Completed [facility] 00:00:00 [facility] TDAP 2017-03-03 Completed [facility] 00:00:00 [facility] TDAP 2017-03-03 Completed [facility] 00:00:00 [facility] TDAP 2017-03-03 Completed [facility] 00:00:00 [facility] TDAP 2017-03-03 Completed [facility] 00:00:00 [facility] TDAP 2017-03-03 Completed [facility] 00:00:00 [facility] TDAP 2017-03-03 Completed [facility] 00:00:00 [facility] TDAP 2017-03-03 Completed [facility] 00:00:00 [facility] TDAP 2017-03-03 Completed [facility] 00:00:00 [facility] Tdap 2017-03-03 Completed [facility] 00:00:00 [facility] TDAP 2017-03-03 Completed [facility] 00:00:00 [facility] TDAP 2017-03-03 Completed [facility] 00:00:00 [facility] TDAP 2017-03-03 Completed [facility] 00[facility]00:00 [facility] TDAP 2017-03-03 Completed [facility] 00:00:00 [facility] TDAP 2017-03-03 Completed [facility] 00:00:00 [facility] TDAP 2017-03-03 Completed [facility] of 00:00:00 [facility] TDAP 2017-03-03 Completed [facility] of 00:00:00 [facility] TDAP 2017-03-03 Completed [facility] 00:00:00 [facility] TDAP 2017-03-03 Completed [facility] of 00:00:00 [facility] TDAP 2017-03-03 Completed [facility] of 00:00:00 [facility] TDAP 2017-03-03 Completed [facility] of 00:00:00 [facility] Tdap 2017-03-03 Completed [facility] 00:00:00 [facility] TDAP 2017-03-03 Completed [facility] 00:00:00 [facility] TDAP 2017-03-03 Completed [facility] 00:00:00 [facility] TDAP 2017-03-03 Completed [facility] 00:00:00 [facility] TDAP 2017-03-03 Completed [facility] 00:00:00 [facility] TDAP 2017-03-03 Completed [facility] 00:00:00 [facility] Tdap 2017-03-03 Completed [facility] 00:00:00 [facility] Tdap 2017-03-03 Completed [facility] of 00:00:00 [facility] Tdap 2017-03-03 Completed [facility] 00:00:00 [facility] Influenza Virus 2016-09-26 Completed [facility]it y [facility]+ 00:00:00 [facility] Influenza Virus 2016-09-26 Completed [facility] y [facility]+ 00:00:00 [facility] Influenza Virus 2016-09-26 Completed [facility] y [facility] 3+ 00:00:00 [facility] Influenza Virus 2016-09-26 Completed [facility] 3+ 00:00:00 [facility] Influenza Virus 2016-09-26 Completed [facility] 3+ 00:00:00 [facility] Influenza Virus 2016-09-26 Completed [facility] 3+ 00:00:00 [facility] Influenza Virus 2016-09-26 Completed [facility] 3+ 00:00:00 [facility] Influenza Virus 2016-09-26 Completed [facility] 3+ 00:00:00 [facility] Influenza Virus 2016-09-26 Completed [facility] 3+ 00:00:00 [facility] Influenza Virus 2016-09-26 Completed [facility] 3+ 00:00:00 [facility] Influenza Virus 2016-09-26 Completed [facility] 3+ 00:00:00 [facility] Influenza Virus 2016-09-26 Completed [facility]+ 00:00:00 [facility] Influenza Virus 2016-09-26 Completed [facility] 3+ 00:00:00 [facility] Influenza Virus 2016-09-26 Completed [facility]+ 00:00:00 [facility] Influenza Virus 2016-09-26 Completed [facility]+ 00:00:00 [facility] Influenza Virus 2016-09-26 Completed [facility] 3+ 00:00:00 [facility] Influenza Virus 2016-09-26 Completed [facility]+ 00:00:00 [facility] Influenza Virus 2016-09-26 Completed [facility]+ 00:00:00 [facility] Influenza Virus 2016-09-26 Completed [facility]+ 00:00:00 [facility] Influenza Virus 2016-09-26 Completed [facility]+ 00:00:00 [facility] Influenza Virus 2016-09-26 Completed [facility] 3+ 00:00:00 [facility] Influenza Virus 2016-09-26 Completed [facility] 3+ 00:00:00 [facility] Influenza Virus 2016-09-26 Completed [facility] 3+ 00:00:00 [facility] Influenza Virus 2016-09-26 Completed [facility]+ 00:00:00 [facility] Influenza Virus 2016-09-26 Completed [facility]+ 00:00:00 [facility] Influenza Virus 2016-09-26 Completed [facility]+ 00:00:00 [facility] Influenza Virus 2016-09-26 Completed [facility] 3+ 00:00:00 [facility] Influenza Virus 2016-09-26 Completed [facility]+ 00:00:00 [facility] Influenza Virus 2016-09-26 Completed [facility] 3+ 00:00:00 [facility] Influenza Virus 2016-09-26 Completed [facility]+ 00:00:00 [facility] Influenza Virus 2016-09-26 Completed [facility]+ 00:00:00 [facility] Influenza Virus 2016-09-26 Completed [facility]+ 00:00:00 [facility] Influenza Virus 2016-09-26 Completed [facility]+ 00:00:00 [facility] Influenza Virus 2016-09-26 Completed [facility]+ 00:00:00 [facility] Influenza Virus 2016-09-26 Completed [facility]+ 00:00:00 [facility] Influenza Virus 2016-09-26 Completed [facility]+ 00:00:00 [facility] Influenza Virus 2016-09-26 Completed [facility]+ 00:00:00 [facility] Influenza Virus 2016-09-26 Completed [facility] 3+ 00:00:00 [facility] Influenza Virus 2016-09-26 Completed [facility]+ 00:00:00 [facility] Influenza Virus 2016-09-26 Completed [facility]+ 00:00:00 [facility] Tdap 2012-03-19 Completed [facility] of 00:00:00 [facility] Tdap 2012-03-19 Completed [facility] of 00:00:00 [facility] TDAP 2012-03-19 Completed [facility] 00:00:00 [facility] TDAP 2012-03-19 Completed [facility] 00:00:00 [facility] TDAP 2012-03-19 Completed [facility] 00:00:00 [facility] TDAP 2012-03-19 Completed [facility] 00:00:00 [facility] TDAP 2012-03-19 Completed [facility] 00:00:00 [facility] TDAP 2012-03-19 Completed [facility] 00:00:00 [facility] TDAP 2012-03-19 Completed [facility] 00:00:00 [facility] TDAP 2012-03-19 Completed [facility] 00:00:00 [facility] TDAP 2012-03-19 Completed [facility] 00:00:00 [facility] TDAP 2012-03-19 Completed [facility] 00:00:00 [facility] TDAP 2012-03-19 Completed [facility] 00:00:00 [facility] TDAP 2012-03-19 Completed [facility] 00:00:00 [facility] TDAP 2012-03-19 Completed [facility] 00:00:00 [facility] TDAP 2012-03-19 Completed [facility] 00:00:00 [facility] TDAP 2012-03-19 Completed [facility] 00:00:00 [facility] TDAP 2012-03-19 Completed [facility] 00:00:00 [facility] Tdap 2012-03-19 Completed [facility] 00:00:00 [facility] TDAP 2012-03-19 Completed [facility] 00:00:00 [facility] TDAP 2012-03-19 Completed [facility] 00:00:00 [facility] TDAP 2012-03-19 Completed [facility] 00:00:00 [facility] TDAP 2012-03-19 Completed [facility] 00:00:00 [facility] TDAP 2012-03-19 Completed [facility] 00:00:00 [facility] TDAP 2012-03-19 Completed [facility] 00:00:00 [facility] TDAP 2012-03-19 Completed [facility] 00:00:00 [facility] TDAP 2012-03-19 Completed [facility] 00:00:00 [facility] TDAP 2012-03-19 Completed [facility] 00:00:00 [facility] TDAP 2012-03-19 Completed [facility] 00:00:00 [facility] TDAP 2012-03-19 Completed [facility] 00:00:00 [facility] TDAP 2012-03-19 Completed [facility] 00:00:00 [facility] Tdap 2012-03-19 Completed [facility] 00:00:00 [facility] TDAP 2012-03-19 Completed [facility] 00:00:00 [facility] TDAP 2012-03-19 Completed [facility] 00:00:00 [facility] TDAP 2012-03-19 Completed [facility] 00:00:00 [facility] TDAP 2012-03-19 Completed [facility] 00:00:00 [facility] TDAP 2012-03-19 Completed [facility] 00:00:00 [facility] Tdap 2012-03-19 Completed [facility] 00:00:00 [facility] Tdap 2012-03-19 Completed University 00:00:00 [facility] Tdap 2012-03-19 Completed University 00:00:00 [facility] Vital Signs Vital Name Observation Time Observation Value Comments Source Systolic blood 2021-02-06 22:53:00 114 mm[Hg] Univer sity of pressure [facility] Diastolic blood 2021-02-06 22:53:00 73 mm[Hg] Unive rsity of pressure [facility] Heart rate 2021-02-06 22:53:00 88 /min [facility] Body temperature 2021-02-06 22:53:00 37.39 Katlyn Univ ersity of [facility] Respiratory rate 2021-02-06 22:53:00 17 /min Univ ersity of [facility] Body height 2021-02-06 22:53:00 162.6 cm [facility] Body weight 2021-02-06 22:53:00 85.73 kg [facility] BMI 2021-02-06 22:53:00 32.44 kg/m2 [facility] Oxygen saturation in 2021-02-06 22:53:00 98 /min [facility] of Arterial blood by [facility] Pulse oximetry Branch Systolic blood 2020-10-02 14:54:00 110 mm[Hg] Univer sity of pressure [facility] Diastolic blood 2020-10-02 14:54:00 76 mm[Hg] Unive rsity of pressure [facility] Heart rate 2020-10-02 14:54:00 64 /min [facility] Body temperature 2020-10-02 14:54:00 36.56 Kat[facility] Respiratory rate 2020-10-02 14:54:00 16 /min Univ ersity of [facility] Body height 2020-10-02 14:54:00 162.6 cm [facility] Body weight 2020-10-02 14:54:00 88.622 kg [facility] BMI 2020-10-02 14:54:00 33.54 kg/m2 [facility] Systolic blood 2020-08-28 22:08:00 112 mm[Hg] Univer sity of pressure [facility] Diastolic blood 2020-08-28 22:08:00 72 mm[Hg] Unive rsity of pressure [facility] Heart rate 2020-08-28 22:08:00 80 /min [facility] Body temperature 2020-08-28 22:08:00 36.83 [facility] Respiratory rate 2020-08-28 22:08:00 18 /min Univ ersity of [facility] Body height 2020-08-28 22:08:00 162.6 cm [facility] Systolic blood 2020-08-17 16:41:00 127 mm[Hg] Univer sity of pressure [facility] Diastolic blood 2020-08-17 16:41:00 83 mm[Hg] Unive rsity of pressure [facility] Heart rate 2020-08-17 16:41:00 102 /min [facility] Body temperature 2020-08-17 16:41:00 36.33 Kat[facility] Respiratory rate 2020-08-17 16:41:00 16 /min Univ ersity of [facility] Body height 2020-08-17 16:41:00 162.6 cm [facility] Body weight 2020-08-17 16:41:00 93.611 kg [facility] BMI 2020-08-17 16:41:00 35.42 kg/m2 [facility] Systolic blood 2020-08-10 15:27:00 120 mm[Hg] Univer sity of pressure [facility] Diastolic blood 2020-08-10 15:27:00 78 mm[Hg] Unive rsity of pressure [facility] Heart rate 2020-08-10 15:27:00 86 /min [facility] Body temperature 2020-08-10 15:27:00 36.94 [facility] Respiratory rate 2020-08-10 15:27:00 16 /min Univ ersity of [facility] Body height 2020-08-10 15:27:00 162.6 cm [facility] Body weight 2020-08-10 15:27:00 92.216 kg [facility] BMI 2020-08-10 15:27:00 34.90 kg/m2 [facility] Systolic blood 2020-08-03 15:46:00 119 mm[Hg] Univer sity of pressure [facility] Diastolic blood 2020-08-03 15:46:00 83 mm[Hg] Unive rsity of pressure [facility] Heart rate 2020-08-03 15:46:00 105 /min [facility] Body temperature 2020-08-03 15:46:00 36.94 [facility] [facility] Respiratory rate 2020-08-03 15:46:00 16 /min Univ ersity of [facility] Body height 2020-08-03 15:46:00 162.6 cm [facility] Body weight 2020-08-03 15:46:00 91.354 kg [facility] BMI 2020-08-03 15:46:00 34.57 kg/m2 [facility] Systolic blood 2020-07-18 16:00:00 114 mm[Hg] Univer sity of pressure [facility] Diastolic blood 2020-07-18 16:00:00 78 mm[Hg] Unive rsity of pressure [facility] Heart rate 2020-07-18 16:00:00 86 /min [facility] Body temperature 2020-07-18 16:00:00 37 [facility] [facility] Respiratory rate 2020-07-18 16:00:00 16 /min Univ ersity of [facility] Body height 2020-07-18 16:00:00 162.6 cm [facility] Body weight 2020-07-18 16:00:00 88.769 kg [facility] BMI 2020-07-18 16:00:00 33.59 kg/m2 [facility] Systolic blood 2020-07-03 21:33:00 116 mm[Hg] Univer sity of pressure [facility] Diastolic blood 2020-07-03 21:33:00 69 mm[Hg] Unive rsity of pressure [facility] Heart rate 2020-07-03 21:33:00 90 /min [facility] Body temperature 2020-07-03 21:33:00 36.94 Kat[place] [facility] Respiratory rate 2020-07-03 21:33:00 16 /min Univ ersity of [facility] Body height 2020-07-03 21:33:00 162.6 cm [facility] Body weight 2020-07-03 21:33:00 86.818 kg [facility] BMI 2020-07-03 21:33:00 32.85 kg/m2 [facility] Systolic blood 2020-06-19 19:53:00 118 mm[Hg] Univer sity of pressure [facility] Diastolic blood 2020-06-19 19:53:00 74 mm[Hg] Unive rsity of pressure [facility] Heart rate 2020-06-19 19:53:00 96 /min [facility] Body temperature 2020-06-19 19:53:00 36.89 [facility] Respiratory rate 2020-06-19 19:53:00 16 /min Univ ersity of [facility] Body height 2020-06-19 19:53:00 162.6 cm [facility] Body weight 2020-06-19 19:53:00 86.274 kg [facility] BMI 2020-06-19 19:53:00 32.65 kg/m2 [facility] Systolic blood 2020-06-05 19:56:00 122 mm[Hg] Univer sity of pressure [facility] Diastolic blood 2020-06-05 19:56:00 72 mm[Hg] Unive rsity of pressure [facility] Heart rate 2020-06-05 19:56:00 89 /min [facility] Body temperature 2020-06-05 19:56:00 36.39 [facility] Respiratory rate 2020-06-05 19:56:00 16 /min Univ ersity of [facility] Body height 2020-06-05 19:56:00 162.6 cm [facility] Body weight 2020-06-05 19:56:00 84.278 kg [facility] BMI 2020-06-05 19:56:00 31.89 kg/m2 [facility] Systolic blood 2020-05-22 15:47:00 111 mm[Hg] Univer sity of pressure [facility] Diastolic blood 2020-05-22 15:47:00 75 mm[Hg] Unive rsity of pressure [facility] Heart rate 2020-05-22 15:47:00 95 /min [facility] Body temperature 2020-05-22 15:47:00 36.5 [facility] Respiratory rate 2020-05-22 15:47:00 16 /min Univ ersity [facility] Body height 2020-05-22 15:47:00 162.6 cm [facility] Body weight 2020-05-22 15:47:00 82.872 kg [facility] BMI 2020-05-22 15:47:00 31.36 kg/m2 [facility] Systolic blood 2020-04-24 20:21:00 112 mm[Hg] Univer sity of pressure [facility] Diastolic blood 2020-04-24 20:21:00 69 mm[Hg] Unive rsity of pressure [facility] Heart rate 2020-04-24 20:21:00 91 /min [facility] Body temperature 2020-04-24 20:21:00 37.44 [facility] [facility] Respiratory rate 2020-04-24 20:21:00 16 /min Univ [facility] Body height 2020-04-24 20:21:00 162.6 cm [facility] Body weight 2020-04-24 20:21:00 81.103 kg [facility] BMI 2020-04-24 20:21:00 30.69 kg/m2 [facility] Systolic blood 2020-04-13 16:15:00 111 mm[Hg] Univer sity of pressure [facility] Diastolic blood 2020-04-13 16:15:00 82 mm[Hg] Unive rsity of pressure [facility] Body temperature 2020-04-13 16:15:00 36.89 [facility] Systolic blood 2020-03-27 19:47:00 115 mm[Hg] Univer sity of pressure [facility] Diastolic blood 2020-03-27 19:47:00 65 mm[Hg] Unive rsity of pressure [facility] Heart rate 2020-03-27 19:47:00 80 /min [facility] Body temperature 2020-03-27 19:47:00 36.78 Kat[place] [facility] Respiratory rate 2020-03-27 19:47:00 16 /min Univ ersity [facility] Body height 2020-03-27 19:47:00 160 cm [facility] Body weight 2020-03-27 19:47:00 75.796 kg [facility] BMI 2020-03-27 19:47:00 29.60 kg/m2 [facility] Systolic blood 2020-02-28 19:29:00 108 mm[Hg] Univer sity of pressure [facility] Diastolic blood 2020-02-28 19:29:00 80 mm[Hg] Unive rsity of pressure [facility] Heart rate 2020-02-28 19:29:00 91 /min [facility]i ty of [facility] Body temperature 2020-02-28 19:29:00 36.39 Kat[place] [facility] Respiratory rate 2020-02-28 19:29:00 16 /min Univ ers[facility] Body weight 2020-02-28 19:29:00 74.135 kg [facility] BMI 2020-02-28 19:29:00 28.05 kg/m2 [facility] Systolic blood 2020-01-31 19:40:00 126 mm[Hg] Univer sity of pressure [facility] Diastolic blood 2020-01-31 19:40:00 63 mm[Hg] Unive rsity of pressure [facility] Heart rate 2020-01-31 19:40:00 80 /min [facility] Body temperature 2020-01-31 19:40:00 37.11 Kat[place] [facility] Respiratory rate 2020-01-31 19:40:00 16 /min Univ ersity of [facility] Body height 2020-01-31 19:40:00 162.6 cm [facility] Body weight 2020-01-31 19:40:00 72.576 kg [facility] BMI 2020-01-31 19:40:00 27.46 kg/m2 [facility] Systolic blood 2019-12-22 19:14:00 113 mm[Hg] Univer sity of pressure [facility] Diastolic blood 2019-12-22 19:14:00 71 mm[Hg] [facility] rsity of pressure [facility] Heart rate 2019-12-22 19:14:00 78 /min [facility] Body temperature 2019-12-22 19:14:00 36.11 [facility] 2019-12-22 19:14:00 16 /min [facility] Body height 2019-12-22 19:14:00 162.6 cm [facility] Body weight 2019-12-22 19:14:00 72.831 kg [facility] BMI 2019-12-22 19:14:00 27.56 kg/m2 [facility] Procedures Procedure Date / Time Performing Clinician Source Performed ASSIGNMENT OF BENEFITS 2021-02-06 22:41:42 Doctor Unassigned, No [facility] HOSPITAL ADMISSION 2020-08-20 06:01:00 Doctor Unassigned, No [facility] 2020-08-17 16:46:00 Jesus Hoffman [facility] POCT URINALYSIS 2020-08-10 00:00:00 Jesus Hoffman [facility] POCT URINALYSIS 2020-08-03 00:00:00 Jesus Hoffman [facility] POCT URINALYSIS 2020-07-18 00:00:00 Jesus Hoffman [facility] POCT URINALYSIS 2020-07-03 00:00:00 Jesus Hoffman [facility] STERILIZATION CONSENT 2020-06-19 06:01:00 Doctor Unassigned, No [facility] POCT URINALYSIS 2020-06-19 00:00:00 Jesus Hoffman [facility] TDAP VACCINE, >11 YRS, 2020-06-05 19:46:41 [facility] ([id number]), 6+ 2020-05-22 15:59:58 Jesus Hoffman [facility] MONTHS, IM, [facility] Medical Branch POCT URINALYSIS 2020-05-22 00:00:00 Jesus Hoffman [facility] POCT URINALYSIS 2020-04-24 00:00:00 Jesus Hoffman [facility] US PELVIS > 14 2020-04-13 18:10:00 [facility] (ID NOW RAPID 2020-04-13 16:44:00 Addison Pascual [facility] TESTING) [facility] ASSIGNMENT OF BENEFITS 2020-04-13 16:02:30 [facility] Unassigned, No [facility] [facility] POCT URINALYSIS 2020-03-27 00:00:00 Jesus Hoffman [facility] POCT URINALYSIS 2020-02-28 19:29:00 Jesus Hoffman [facility] POCT URINALYSIS 2020-01-31 19:41:00 Jesus Hoffman [facility] POCT TEST 2019-12-22 19:15:00 Jesus Hoffman [facility] POCT URINALYSIS W/O 2019-12-22 19:15:00 Jesus Hoffman [facility] SPECIFIC GRAVITY [facility] ASSIGNMENT OF BENEFITS 2019-12-22 18:54:03 Doctor Unassigned, No [facility] Encounters Start End Encounter Admission Attending Care Care Encounter Source Date/Time Date/Time Type Type Clinicians Facility Department ID 2021-05-25 Outpatient P [facility] [id number] Univers 18:07:16 ity [facility] 2021-05-25 Outpatient P [facility] [id number] [facility]:03[facility] 2021-02-06 2021-02-06 Urgent Provider, Marco [facility] 1.2.840.114 [id number] Univers 17:41:55 18:30:27 Care [facility] Keecker 350.1.13.10 ity [facility] 4.2.7.2.686 Julius as Professio [phone] [place] [address] [address] 2021-02-06 2021-02-06 Outpatient R [facility], [facility] [id number] Univers 18:00:00 18:00:00 GRACIE schultz [facility] 2021-02-06 2021-02-06 Orders Doctor YEVGENIY 1.2.840.114 [id number] Univers 00:00:00 00:00:00 Only Unassigned, MEY 350.1.13.10 ity of [place] [facility] 4.2.7.2.686 Julius as [phone] [address] 2020-10-02 2020-10-02 [facility] 1.2.840.114 [id number] Univers 09:21:18 09:23:18 Jesus Garza [facility] 350.1.13.10 ity of Visit [facility] 4.2.7.2.686 Julius as MATERNAL [phone] [facility] ical & CHILD [address] [place] [address] 2020-10-02 2020-10-02 [facility] [id number] Univers 08:45:00 08:45:00 JESUS schultz o [facility] 2020-09-13 2020-09-13 [facility] [id number] Univers 15:45:00 15:45:00 JESUS gallardo [facility] 2020-08-28 2020-08-28 Nurse Visit, [facility] Nurse [facility] 1.2 .840.114 [id number] Univers 15:33:57 16:04:20 Visit Jesus Hoffman [facility] 350.1.13.10 ity of REGIONAL 4.2.7.2.686 Julius as MATERNAL [phone] [facility] ical & CHILD [address] [place] [address] 2020-08-28 2020-08-28 [facility] [id number] Univers 15:30:00 15:30:00 JESUS gallardo [facility] 2020-08-20 2020-08-20 Outpatient Amol WEEKS [facility] [id number] Univers 02:01:00 02:01:00 DEANGELO schultz [facility] 2020-08-20 2020-08-20 Orders Doctor YEVGENIY 1.2.840.114 [id number] Univers 00:00:00 00:00:00 Only Unassigned, MEY 350.1.13.10 ity of [place] [facility] 4.2.7.2.686 Julius as [phone] [address] 2020-08-17 2020-08-17 [facility] 1.2.840.114 [id number] Univers 10:31:31 10:58:45 Roshunda R [facility] 350.1.13.10 ity of Visit [facility] 4.2.7.2.686 Julius as MATERNAL [phone] [facility] & [address] 2020-08-17 2020-08-17 [facility] [id number] Univers 10:45:00 10:45:00 ROSHUNDA ity o f [facility] 2020-08-12 2020-08-12 [facility]ill [facility] 1.2.840.114 [id number] Univers 00:00:00 00:00:00 Roshunda R [facility] 350.1.13.10 ity of [facility] 4.2.7.2.686 Julius as MATERNAL [phone] [address] 2020-08-10 2020-08-10 [facility] 1.2.840.114 [id number] Univers 09:20:26 10:08:43 Roshunda R [facility] 350.1.13.10 ity of Visit [facility] 4.2.7.2.686 Julius as MATERNAL [phone] [facility] & [address] 2020-08-10 2020-08-10 Outpatient R JAME [facility] [id number] Univers 09:15:00 09:15:00 ROSHUNDA ity o f [facility] 2020-08-03 2020-08-03 [facility] 1.2.840.114 [id number] Univers 09:31:23 10:13:27 Roshunda R [facility] 350.1.13.10 ity of Visit [facility] 4.2.7.2.686 Julius as MATERNAL [phone] [facility] ical & CHILD [address] [place] [address] 2020-08-03 2020-08-03 Outpatient Greg HOFFMAN [facility] [id number] Univers 09:45:00 09:45:00 ROSHUNDA ity o f [facility] 2020-08-01 2020-08-01 Outpatient Greg HOFFMAN [facility] [id number] Univers 07:45:00 07:45:00 ROSHUNDA jesusy o f [facility] 2020-07-18 2020-07-18 Routine [facility] 1.2.840.114 [id number] Univers 09:50:35 10:12:24 Roshunda R [facility] 350.1.13.10 ity of Visit [facility] 4.2.7.2.686 Julius as MATERNAL [id number] [facility] [address] [place] [address] 2020-07-18 2020-07-18 Outpatient Greg HOFFMAN [facility] [id number] Univers 09:45:00 09:45:00 ROSHUNDA ity o [facility] 2020-07-03 2020-07-03 Routine [facility] 1.2.840.114 [id number] Univers 15:25:04 15:40:04 Roshunda R [facility] [facility] 350.1.13.10 ity of Visit [facility] 4.2.7.2.686 Julius as MATERNAL [phone] [facility] & CHILD [address] [place] [address] 2020-07-03 2020-07-03 Outpatient Greg HOFFMAN [facility] [id number] Univers 15:30:00 15:30:00 ROSHUNDA ity o f [facility] 2020-07-03 2020-07-03 [facility] [id number] Univers 15:30:00 15:30:00 ROSHUNDA ity o [facility] 2020-06-19 2020-06-19 Routine [facility] 1.2.840.114 [id number] Univers 13:40:06 13:55:06 Roshunda R [facility] 350.1.13.10 ity of Visit REGIONAL 4.2.7.2.686 Julius as MATERNAL [phone] [facility] ical & CHILD [address] [place] [address] 2020-06-19 2020-06-19 [facility] [id number] Univers 13:45:00 13:45:00 ROSHUNDA ity o f [facility] 2020-06-19 2020-06-19 Orders Doctor YEVGENIY 1.2.840.114 [id number] Univers 00:00:00 00:00:00 Only Unassigned, MEY 350.1.13.10 ity of [place] [facility] 4.2.7.2.686 Julius as [phone] [address] 2020-06-05 2020-06-05 [facility] 1.2.840.114 [id number] Univers 13:45:19 14:14:35 Roshunda R [facility] 350.1.13.10 ity of Visit [facility] 4.2.7.2.686 Julius as MATERNAL [phone] [facility] & CHILD [address] [place] [address] 2020-06-05 2020-06-05 [facility] [id number] Univers 13:45:00 13:45:00 ROSHUNDA ity o f [facility] 2020-05-22 2020-05-22 Routine [facility] 1.2.840.114 [id number] Univers 10:36:54 14:11:51 Roshunda R [facility] 350.1.13.10 ity of Visit REGIONAL 4.2.7.2.686 Julius as MATERNAL [id number] [facility] & CHILD [address] [place] [address] 2020-05-22 2020-05-22 [facility] [id number] Univers 11:00:00 11:00:00 ROSHUNDA ity o f [facility] 2020-04-24 2020-04-24 Routine [facility] 1.2.840.114 [id number] Univers 14:34:07 15:30:23 Roshunda R [facility] 350.1.13.10 ity of Visit REGIONAL 4.2.7.2.686 Julius as MATERNAL [id number] [facility] & CH[facility] [address] [place] [address] 2020-04-24 2020-04-24 Outpatient R JAME [facility] [id number] Univers 14:30:00 14:30:00 ROSNARA ity o f [facility] 2020-04-13 2020-04-13 [facility] Addison Pascual [facility] 1.2.840.114 [id number] Univers 11:05:00 14:05:00 Encounter [place] 350.1.13.10 ity of [place] 4.2.7.2.686 [facility] [id number] [facility] [address] [place] [address] 2020-04-13 2020-04-13 Telephone Jame [facility] 1.2.174.824 [id number] Univers 00:00:00 00:00:00 Jesus Garza [facility] 350.1.13.10 ity of [facility] 4.2.7.2.686 Julius as MATERNAL [phone] Med ical & CHILD [address] [place] [address] 2020-04-13 2020-04-13 Orders Doctor YEVGENIY 1.2.840.114 [id number] Univers 00:00:00 00:00:00 Only Unassigned, MEY 350.1.13.10 ity of [place] [facility] 4.2.7.2.686 Julius as [phone] [facility] [address] [place] 2020-04-11 2020-04-11 Abstract Jame [facility] 1.2.840.114 [id number] Univers 00:00:00 00:00:00 Jesus Garza [facility] 350.1.13.10 ity of [facility] 4.2.7.2.686 Julius as MATERNAL [phone] Med ical & CHILD [address] [place] [address] 2020-04-10 2020-04-10 Etl Developer Ultrasound, Marco [facility] 1.2 .840.114 [id number] Univers 13:51:58 14:51:58 Visit Radha Ortiz [facility] 350.1.13.10 ity of [facility] 4.2.7.2.686 Julius as MATERNAL [id number] [facility] ical & CHILD [address] [facility] 2020-04-10 2020-04-10 Outpatient R [facility] [id number] Univers 14:00:00 14:00:00 ity of [facility] 2020-03-27 2020-03-27 Routine Jame [facility] 1.2.840.114 [id number] Univers 14:34:45 15:27:19 Roshunda R [facility] 350.1.13.10 ity of Visit REGIONAL 4.2.7.2.686 Julius as MATERNAL [id number] [facility] & CHILD [address] [place] [address] 2020-03-27 2020-03-27 Outpatient R HOFFMAN [facility] [id number] Univers 14:30:00 14:30:00 ROSHUNDA ity o f [facility] 2020-02-28 2020-02-28 Routine [facility] 1.2.840.114 [id number] Univers 14:17:24 14:42:36 Roshunda R [facility] 350.1.13.10 ity of Visit REGIONAL 4.2.7.2.686 Julius as MATERNAL [id number] [facility] & [address] 2020-02-28 2020-02-28 Outpatient R JAME [facility] [id number] Univers 14:30:00 14:30:00 ROSHUNDA ity o f [facility] 2020-01-31 2020-01-31 Routine [facility] 1.2.840.114 [id number] Univers 14:32:59 15:04:25 Roshunda R [facility] 350.1.13.10 ity of Visit REGIONAL 4.2.7.2.686 Julius as MATERNAL [phone] [facility] & [address] 2020-01-31 2020-01-31 Outpatient Greg HOFFMAN [facility] [id number] Univers 14:30:00 14:30:00 ROSHUNDA ity o f [facility] 2020-01-19 2020-01-19 Outpatient [facility] [id number] Univers 14:30:00 14:30:00 ROSHUNDA ity o f [facility] 2020-01-06 2020-01-06 Etl Developer Ultrasound, [facility] 1.2 .840.114 [id number] Univers 10:33:49 11:03:49 Visit Denisse Carrasquillo [facility] 350.1.13.10 ity of REGIONAL 4.2.7.2.686 Julius as MATERNAL [id number] [facility] ical & CHILD [address] [facility] 2020-01-06 2020-01-06 Outpatient P [facility] [id number] Univers 10:00:00 10:00:00 ity of [facility] 2020-01-06 2020-01-06 Abstract Nichol, [facility] 1.2.840.114 [id number] Univers 00:00:00 00:00:00 Melissa Jay [employer] [facility] 350.1.13.10 ity of REGIONAL 4.2.7.2.686 Julius as MATERNAL [phone] [facility] ical & CHILD [address] [place] [address] 2019-12-28 2019-12-28 Patient Doctor [facility] 1.2.840.114 [id number] Univers 00:00:00 00:00:00 Secure Msg Unassigned, [facility] 350.1.13.10 ity of [place] REGIONAL 4.2.7.2.686 Julius as MATERNAL [phone] Med ical & CHILD [address] [place] [address] 2019-12-28 2019-12-28 Patient Doctor [facility] 1.2.840.114 [id number] Univers 00:00:00 00:00:00 Secure Msg Unassigned, [facility] 350.1.13.10 ity of [place] REGIONAL 4.2.7.2.686 Julius as MATERNAL [phone] [facility] & CHILD [address] [place] [address] 2019-12-23 2019-12-23 Telephone Jame [facility] 1.2.898.842 [id number] Univers 00:00:00 00:00:00 Rosdylannda R [facility] 350.1.13.10 ity of REGIONAL 4.2.7.2.686 Julius as MATERNAL [id number] [facility] ical & CHILD [address] [place] [address] 2019-12-22 2019-12-22 Initial Jame [facility] 1.2.840.114 [id number] Univers 13:53:54 15:48:42 Rosdylannda R [employer] 350.1.13.10 ity of Visit REGIONAL 4.2.7.2.686 Julius as MATERNAL [id number] Med ical & CHILD [address] [place] [address] 2019-12-22 2019-12-22 Outpatient Greg HOFFMAN [facility] [id number] Univers 13:30:00 13:30:00 JESUS ity o f [facility] 2019-12-22 2019-12-22 Orders Doctor YEVGENIY 1.2.840.114 [id number] Univers 00:00:00 00:00:00 Only Unassigned, MEY 350.1.13.10 ity of [place] [facility] 4.2.7.2.686 Julius as [phone] [address] Results Test Description Test Time Test [...] POCT U APPEAR (test code = 3267) [facility] W SPECIFIC [id number] 15:28:00 Test Item Value Reference Range Interpretation [...] POCT U APPEAR (test code = 3267) [facility] URINALYSIS W SPECIFIC [id number] 15:47:00 Test Item Value Reference Range Interpretation [...] POCT U APPEAR (test code = 3267) [facility] URINALYSIS W SPECIFIC [id number] 15:47:00 Test Item Value Reference Range Interpretation [...] POCT U APPEAR (test code = 3267) [facility] URINALYSIS W SPECIFIC [id number] 15:47:00 Test Item Value Reference Range Interpretation [...] POCT U APPEAR (test code = 3267) [facility] URINALYSIS W SPECIFIC [id number] 16:01:00 Test Item Value Reference Range Interpretation [...] POCT U APPEAR (test code = 3267) [facility] URINALYSIS W SPECIFIC [id number] 16:01:00 Test Item Value Reference Range Interpretation [...] POCT U APPEAR (test code = 3267) [facility] URINALYSIS W SPECIFIC [id number] 21:34:00 Test Item Value Reference Range Interpretation [...] POCT U APPEAR (test code = 3267) [facility] URINALYSIS W SPECIFIC [id number] 19:54:00 Test Item Value Reference Range Interpretation [...] POCT U APPEAR (test code = 3267) [facility] URINALYSIS W SPECIFIC [id number] 19:54:00 Test Item Value Reference Range Interpretation [...] POCT U APPEAR (test code = 3267) [facility] URINALYSIS W SPECIFIC [id number] 15:48:00 Test Item Value Reference Range Interpretation [...] POCT U APPEAR (test code = 3267) [facility] URINALYSIS W SPECIFIC [id number] 15:48:00 Test Item Value Reference Range Interpretation [...] POCT U APPEAR (test code = 3267) [facility] URINALYSIS W SPECIFIC [id number] 20:22:00 Test Item Value Reference Range Interpretation [...] POCT U APPEAR (test code = 3267) [facility] URINALYSIS W SPECIFIC [id number] 20:22:00 Test Item Value Reference Range Interpretation [...] POCT U APPEAR (test code = 3267) [facility] HospitalUS PELVIS > 14 [id number] 18:46:28HISTORY: Abdominal pain. TECHNIQUE: Routine OB sonography [...] breech positionconfirmed. ?JUAN RAMON HENRIQUEZ M.D., D.A.B.R. [facility], Radiant Results Inft User - 04/13/2020 [...] AMNIOTIC FLUID: Amniotic fluid is normal. RONY =17.11 cm. Placenta is anterior Grade 0. No evidence of placenta previa. FETUS:Normal four-chambered heart. FHR = 143 BPMThree vessels of umbilical cord identified. stomach seen on the left side.Normal kidneys and bladder.Normal head and spine. WEIGHT: 375 gm.JOSE A: 08/26/2020.CONCLUS ION: Single live IUP of 20 weeks and 5 day in breech positionconfirmed. JUAN RAMON HENRIQUEZ M.D., D.A.B.R.[facility] HospitalCOVID-19 (ID NOW RAPID TESTING)2020-04-13 17:44:00 Test Item Value Reference Range Interpretation Comments SARS-CoV-2 Rapid ID NOW Not Detected Not Detected (test code = 32357-3) RAFAEL (test code = RAFAEL) ID NOW COVID-19 Assay is an isothermal nucleic acid amplification test intended for the qualitative detection of nucleic acid from SARS-CoV-2 viral RNA in nasopharyngeal (PHARMACY BILLING ADJUDICATOR) specimens. It is used under Emergency Use [...] indicated. Lab Interpretation Normal (test code = 09818-2) [facility] URINALYSIS W SPECIFIC [id number] 19:48:00 Test Item Value Reference Range Interpretation [...] POCT U APPEAR (test code = 3267) [facility] URINALYSIS W SPECIFIC [id number] 19:31:00 Test Item Value Reference Range Interpretation [...] POCT U APPEAR (test code = 3267) [facility] URINALYSIS W SPECIFIC [id number] 19:42:00 Test Item Value Reference Range Interpretation [...] POCT U APPEAR (test code = 3267) [facility] URINALYSIS W SPECIFIC [id number] 19:42:00 Test Item Value Reference Range Interpretation [...] POCT U APPEAR (test code = 3267) [facility] [id number] 19:15:00 Test Item Value Reference Range Interpretation Comments POCT PREG (test code = 1605) Positive On board controls acceptable with C Yes Line (test code = 3574) POCT PREG LOT # (test code = 3575) POCT PREG TEST DATE (test code = 3576) [facility] URINALYSIS W/O SPECIFIC [id number] 19:15:00 Test Item Value Reference Range Interpretation [...] Negative Lab Interpretation (test code = Abnormal 37530-3) [facility] [id number] 19:15:00 Test Item Value Reference Range Interpretation Comments POCT PREG (test code = 1605) Positive On board controls acceptable with C Yes Line (test code = 3574) POCT PREG LOT # (test code = 3575) POCT PREG TEST DATE (test code = 3576) [facility] URINALYSIS W/O SPECIFIC [id number] 19:15:00 Test Item Value Reference Range Interpretation [...] Negative Lab Interpretation (test code = Abnormal 28024-2) [facility] [id number] 19:15:00 Test Item Value Reference Range Interpretation Comments POCT PREG (test code = 1605) Positive On board controls acceptable with C Yes Line (test code = 3574) POCT PREG LOT # (test code = 3575) POCT PREG TEST DATE (test code = 3576) [facility] HospitalPOCT URINALYSIS W/O SPECIFIC [id number] 19:15:00 Test Item Value Reference Range Interpretation [...] Negative Lab Interpretation (test code = Abnormal 10111-6) [facility]
--- NOTE | 2023-03-22 17:15 | ER ---
Nurse's Notes [facility] Name: Arabella Crisostomo Age: 27 yrs Sex: Female : 1995 Arrival Date: 03/22/2023 Time: 17:00 Bed 7 Private MD: Diagnosis: Contact with and (suspected) exposure to infections with a predominantly sexual mode of transmission;Rectal pain Presentation: 03/22 17:04 Chief complaint: Patient states: Burning to vaginal area for a couple days. Rectal pain ll1 for a couple days. No fever. Ebola Screen: Patient denies travel to an Ebola-affected area in the 21 days before illness onset. 17:04 Method Of Arrival: Ambulatory ll1 17:06 Coronavirus screen: Client denies travel out of the [place] in the last 14 days. At this ll1 time, the client does not indicate any symptoms associated with coronavirus-19. Initial Sepsis Screen: Does the patient meet any 2 criteria? No. Patient's initial sepsis screen is negative. Does the patient have a suspected source of infection? No. Patient's initial sepsis screen is negative. Risk Assessment: Do you want to hurt yourself or someone else? Patient reports no desire to harm self or others. Onset of symptoms was March 20, 2023. 17:06 Acuity: TATYANA 4 ll1 Historical: - Allergies: 17:06 Codeine; ll1 17:06 tramadol; ll1 - PMHx: 17:06 None; ll1 - PSHx: 17:06 section; x 2; Cholecystectomy; ll1 - Immunization history:: Client reports having NOT received the Covid vaccine. - Social history:: Smoking status: Patient denies any tobacco usage or history of. Screenin:29 [facility] ED Fall Risk Assessment (Adult) Score/Fall Risk Level 0 - 2 = Low Risk hb Oriented to surroundings, Maintained a safe environment. Abuse screen: Denies threats or abuse. Denies injuries from another. Nutritional screening: No deficits noted. Tuberculosis screening: No symptoms or risk factors identified. Assessment: 17:29 General: Appears in no apparent distress. Behavior is calm, cooperative. Pain: Pain hb currently is 5 out of 10 on a pain scale. Neuro: Level of Consciousness is awake, alert, obeys commands, Oriented to person, place, time, situation. Cardiovascular: Patient's skin is warm and dry. Respiratory: Respiratory effort is even, unlabored, Respiratory pattern is regular, symmetrical. GI: No signs and/or symptoms were reported involving the gastrointestinal system. : No signs and/or symptoms were reported regarding the genitourinary system. EENT: No signs and/or symptoms were reported regarding the EENT system. Derm: Skin is pink, warm \T\ dry. Musculoskeletal: No signs and/or symptoms reported regarding the musculoskeletal system. Vital Signs: 17:06 BP 132 / 86; Pulse 87; Resp 16; Temp 99.7; Pulse Ox 99% ; Weight 83.91 kg; Height 5 ft. ll1 4 in. ; Pain 5/10; 17:06 Body Mass Index 31.75 (83.91 kg, 162.56 cm) ll1 17:06 Pain Scale: Adult ll1 ED Course: 17:02 Patient arrived in ED. rg4 17:02 Rae Lynne FNP-C is [facility]. snw 17:02 Fred Villalobos MD is Attending Physician. snw 17:07 Triage completed. ll1 17:07 Arm band placed on. ll1 17:29 Patient has correct armband on for positive identification. Provided Education on: . hb 17:29 No provider procedures requiring assistance completed. Patient did not have IV access hb during this emergency room visit. Administered Medications: 17:29 Drug: AZITHromycin PO 1 grams Route: PO; hb 17:29 Follow up: Response: Medication administered at discharge. hb 17:29 Drug: Rocephin (cefTRIAXone) IM 1 grams Route: IM; Site: left vastus lateralis; hb 17:29 Follow up: Response: Medication administered at discharge. hb Medication: 17:29 VIS not applicable for this client. hb Outcome: 17:15 Discharge ordered by . snw 17:29 Discharged to home ambulatory. hb 17:29 Condition: stable 17:29 Discharge instructions given to patient, Instructed on discharge instructions, follow up and referral plans. medication usage, Demonstrated understanding of instructions, follow-up care, medications, Prescriptions given X 1. 17:54 Patient left the ED. ap3 Signatures: Rae Lynne FNP-C FNP-Csnw Theresa Akins RN RN Cally Crisostomo rg4 Sarahi Navarro RN RN ap3 Nathaniel, Lynsay, RN RN ll1
--- NOTE | 2023-03-22 17:16 | EDPHYS ---
Physician Documentation [facility] Name: Arabella Crisostomo Age: 27 yrs Sex: Female : 1995 Arrival Date: 03/22/2023 Time: 17:00 Bed 7 Private MD: ED Physician Fred Villalobos HPI: 03/22 17:53 This 27 yrs old Female presents to ER via Ambulatory with complaints of STD snw Exposure. 17:53 Onset: The symptoms/episode began/occurred acutely. Associated signs and symptoms: snw Pertinent positives: dysuria. The patient has not experienced similar symptoms in the past, but family has similar symptoms, spouse. The patient has not recently seen a physician. Historical: - Allergies: 17:06 Codeine; ll1 17:06 tramadol; ll1 - PMHx: 17:06 None; ll1 - PSHx: 17:06 section; x 2; Cholecystectomy; ll1 - Immunization history:: Client reports having NOT received the Covid vaccine. - Social history:: Smoking status: Patient denies any tobacco usage or history of. ROS: 17:53 Constitutional: Negative for fever, chills, and weight loss, Eyes: Negative for injury, snw pain, redness, and discharge, ENT: Negative for injury, pain, and discharge, Neck: Negative for injury, pain, and swelling, Cardiovascular: Negative for chest pain, palpitations, and edema, Respiratory: Negative for shortness of breath, cough, wheezing, and pleuritic chest pain, Abdomen/GI: Negative for abdominal pain, nausea, vomiting, diarrhea, and constipation, Back: Negative for injury and pain, MS/Extremity: Negative for injury and deformity, Skin: Negative for injury, rash, and discoloration, Neuro: Negative for headache, weakness, numbness, tingling, and seizure, Psych: Negative for depression, anxiety, suicide ideation, homicidal ideation, and hallucinations. 17:53 : Positive for urinary symptoms. Exam: 17:53 Constitutional: This is a well developed, well nourished patient who is awake, alert, snw and in no acute distress. Head/Face: Normocephalic, atraumatic. Eyes: Pupils equal round and reactive to light, extra-ocular motions intact. Lids and lashes normal. Conjunctiva and sclera are non-icteric and not injected. Cornea within normal limits. Periorbital areas with no swelling, redness, or edema. ENT: Nares patent. No nasal discharge, no septal abnormalities noted. Tympanic membranes are normal and external auditory canals are clear. Oropharynx with no redness, swelling, or masses, exudates, or evidence of obstruction, uvula midline. Mucous membranes moist. Neck: Trachea midline, no thyromegaly or masses palpated, and no cervical lymphadenopathy. Supple, full range of motion without nuchal rigidity, or vertebral point tenderness. No Meningismus. Chest/axilla: Normal chest wall appearance and motion. Nontender with no deformity. No lesions are appreciated. Cardiovascular: Regular rate and rhythm with a normal S1 and S2. No gallops, murmurs, or rubs. Normal PMI, no JVD. No pulse deficits. Respiratory: Lungs have equal breath sounds bilaterally, clear to auscultation and percussion. No rales, rhonchi or wheezes noted. No increased work of breathing, no retractions or nasal flaring. Abdomen/GI: Soft, non-tender, with normal bowel sounds. No distension or tympany. No guarding or rebound. No evidence of tenderness throughout. Back: No spinal tenderness. No costovertebral tenderness. Full range of motion. Skin: Warm, dry with normal turgor. Normal color with no rashes, no lesions, and no evidence of cellulitis. MS/ Extremity: Pulses equal, no cyanosis. Neurovascular intact. Full, normal range of motion. Neuro: Awake and alert, GCS 15, oriented to person, place, time, and situation. Cranial nerves II-XII grossly intact. Motor strength 5/5 in all extremities. Sensory grossly intact. Cerebellar exam normal. Normal gait. Psych: Awake, alert, with orientation to person, place and time. Behavior, mood, and affect are within normal limits. Vital Signs: 17:06 BP 132 / 86; Pulse 87; Resp 16; Temp 99.7; Pulse Ox 99% ; Weight 83.91 kg; Height 5 ft. ll1 4 in. ; Pain 5/10; 17:06 Body Mass Index 31.75 (83.91 kg, 162.56 cm) ll1 17:06 Pain Scale: Adult ll1 MDM: 17:14 Patient medically screened. [email or web address] 17:54 Differential diagnosis: viral Infection, bacterial infection. Data reviewed: vital snw signs, nurses notes. I considered the following discharge prescriptions or medication management in the emergency department Medications were administered in the Emergency Department. See MAR. Counseling: I had a detailed discussion with the patient and/or guardian regarding the historical points, exam findings, and any diagnostic results supporting the discharge/admit diagnosis, the presence of at least one elevated blood pressure reading (>120/80) during this emergency department visit, the need for outpatient follow up, to return to the emergency department if symptoms worsen or persist or if there are any questions or concerns that arise at home. Special discussion: Based on the history and exam findings, there is no indication for further emergent testing or inpatient evaluation. I discussed with the patient/guardian the need to see the primary care provider for further evaluation of the symptoms. Administered Medications: 17:29 Drug: AZITHromycin PO 1 grams Route: PO; hb 17:29 Follow up: Response: Medication administered at discharge. 17:29 Drug: Rocephin (cefTRIAXone) IM 1 grams Route: IM; Site: left vastus lateralis; 17:29 Follow up: Response: Medication administered at discharge. Disposition Summary: 03/22/23 17:15 Discharge Ordered Location: Home snw Condition: Stable snw Diagnosis - Contact with and (suspected) exposure to infections with a predominantly sexual snw mode of transmission - Rectal pain snw Followup: snw - With: Emergency Department - When: As needed - Reason: Worsening of condition Followup: snw - With: Private Physician - When: 7 - 10 days - Reason: Recheck today's complaints, Continuance of care, Re-evaluation by your physician Discharge Instructions: - Discharge Summary Sheet snw - How to Take a Sitz Bath snw - Vaginitis snw - Safe Sex snw - Preventing Sexually Transmitted Infections, Adult snw Forms: - Medication Reconciliation Form snw - Thank You Letter snw - Antibiotic Education snw - Prescription Opioid Use snw - Patient Portal Instructions snw - Leadership Thank You Letter snw Prescriptions: - Proctofoam 1 % Topical foam - apply 1 application by RECTAL route 3 times per day; 1 unit; Refills: 0, snw Product Selection Permitted Signatures: Fred Villalobos MD MD cha Waters, Shelly, MELTING SUPERVISOR-C MELTING SUPERVISOR-Csnw Theresa Akins RN RN Tracey Quintero, RN RN ll1
[2023-03-22] MEDS ORDERED: AZITHROMYCIN 250 MG TAB ONE (17:33)
[2023-03-22] MEDS ORDERED: CEFTRIAXONE 1000 MG/VIAL ONE (17:33)
[2023-03-22] MEDS ORDERED: LIDOCAINE 1% MPF 2 ML AMPULE ONE (17:33)
[2023-03-22 18:28] VITALS: BP 132/86; TEMP 99.7; O2SAT 99
== END 2023-03-22 17:54 | disposition home or self-care (01) ==
LOC: ER 17:00
DX: Z20.2 Contact with and (suspected) exposure to infections with a predominantly sexual mode of transmission (principal); K62.89 Other specified diseases of anus and rectum; Z88.5 Allergy status to narcotic agent
CPT/HCPCS: 96372; 99284; J0696